=== PATIENT | male | born 1950 | race Hispanic/Latino ===

== ENCOUNTER 2023-11-21 13:49 | Emergency (ER) | payer OTHER ==
--- NOTE | 2023-11-21 14:19 | ER ---
Nurse's Notes [facility] Name: Michele Hardwick Age: 73 yrs Sex: Male : 1950 Arrival Date: 11/21/2023 Time: 13:49 Bed IW2 Private MD: Diagnosis: Acute maxillary sinusitis Presentation: 11/20 14:10 Chief complaint: Patient states: Flu like symptoms onset 10 days ago. Pt reports cough, cm10 congestion, and headache. Pt reports taking OTC meds with no relief. Coronavirus screen: Client denies travel out of the [place] in the last 14 days. Ebola Screen: Patient denies travel to an Ebola-affected area in the 21 days before illness onset. No symptoms or risks identified at this time. Initial Sepsis Screen: Does the patient meet any 2 criteria? No. Patient's initial sepsis screen is negative. Does the patient have a suspected source of infection? No. Patient's initial sepsis screen is negative. Risk Assessment: Do you want to hurt yourself or someone else? Patient reports no desire to harm self or others. Onset of symptoms was November 12, 2023. 14:10 Method Of Arrival: Ambulatory cm10 14:10 Acuity: GIBRAN 4 cm10 Triage Assessment: 14:12 General: Appears in no apparent distress. comfortable, Behavior is calm, cooperative. cm10 Neuro: No deficits noted. Level of Consciousness is awake, alert, obeys commands, Oriented to person, place, time, situation, Appropriate for age. Respiratory: No deficits noted. Airway is patent Respiratory effort is even, unlabored, Respiratory pattern is regular, symmetrical. 14:25 Pain: Complains of pain in head. cm10 Historical: - Allergies: 14:11 No Known Allergies; cm10 - Home Meds: 14:11 None [Active]; cm10 - PMHx: 14:11 None; cm10 - PSHx: 14:11 None; cm10 - Immunization history:: Adult Immunizations up to date. - Infectious Disease History:: Denies. - Social history:: Smoking status: Patient/guardian denies using tobacco. Screenin:25 [facility] ED Fall Risk Assessment (Adult) History of falling in the last 3 months, cm10 including since admission No falls in past 3 months (0 pts) Confusion or Disorientation No (0 pts) Intoxicated or Sedated No (0 pts) Impaired Gait No (0 pts) Mobility Assist Device Used No (0 pt) Altered Elimination No (0 pt) Score/Fall Risk Level 0 - 2 = Low Risk Oriented to surroundings, Maintained a safe environment, Hourly rounding (assess needs \T\ fall precautionary measures) done. Abuse screen: Denies threats or abuse. Denies injuries from another. Nutritional screening: No deficits noted. Tuberculosis screening: No symptoms or risk factors identified. Vital Signs: 14:10 BP 161 / 95; Pulse 55; Resp 19; Temp 97.7; Pulse Ox 98% on R/A; Weight 113.4 kg; Height cm10 5 ft. 11 in. ; Pain 10/10; 14:10 Body Mass Index 34.87 (113.40 kg, 180.34 cm) cm10 14:10 Pain Scale: Adult cm10 ED Course: 13:52 Patient arrived in ED. mr 13:55 Rashel Leyva MD is Attending Physician. ec2 14:11 Triage completed. cm10 14:12 Arm band placed on left wrist. Patient placed in waiting room. cm10 14:24 Patient has correct armband on for positive identification. Provided Education on: cm10 Follow-up instructions. 14:24 SARS RAPID Sent. cm10 14:24 Flu Sent. cm10 14:24 No provider procedures requiring assistance completed. COVID swab sent to lab. Flu cm10 and/or RSV swab sent to lab. Patient did not have IV access during this emergency room visit. Administered Medications: 14:23 Drug: predniSONE PO 20 mg PO once Route: PO; cm10 14:26 Follow up: Response: Medication administered at discharge. cm10 14:24 Drug: AZITHromycin PO 500 mg PO once Route: PO; cm10 14:26 Follow up: Response: Medication administered at discharge. cm10 Medication: 14:25 VIS not applicable for this client. cm10 Outcome: 14:19 Discharge ordered by . ec2 14:25 Discharged to home ambulatory, cm10 14:25 Condition: good 14:25 Discharge instructions given to patient, Instructed on discharge instructions, follow up and referral plans. medication usage, Demonstrated understanding of instructions, follow-up care, medications, Prescriptions given X 2, 14:26 Patient left the ED. cm10 Signatures: Candelaria Aguilar, Ash Reg Renae Valerio, RN RN cm10 Rashel Leyva MD MD ec2 Corrections: (The following items were deleted from the chart) 14:13 14:10 Onset of symptoms was November 21, 2023 [place] [id number]
--- NOTE | 2023-11-21 14:19 | EDPHYS ---
Physician Documentation [facility] Name: Michele Hardwick Age: 73 yrs Sex: Male : 1950 Arrival Date: 11/21/2023 Time: 13:49 Bed IW2 Private MD: ED Physician Rashel Leyva HPI: 11/20 14:21 This 73 yrs old Male presents to ER via Ambulatory with complaints of Flu ec2 Symptoms. 14:21 Patient arrives today d/t concern for URI s/s. Reports 10 plus days of URI s/s, reports ec2 that he is having congestion, fatigue, decreased p.o. intake. Patient reports no difficulty breathing. Patient reports he is taken [id number] medications with minimal alleviation symptoms. Reports significant drainage from the bilateral nares.. Historical: - Allergies: 14:11 No Known Allergies; cm10 - Home Meds: 14:11 None [Active]; cm10 - PMHx: 14:11 None; cm10 - PSHx: 14:11 None; cm10 - Immunization history:: Adult Immunizations up to date. - Infectious Disease History:: Denies. - Social history:: Smoking status: Patient/guardian denies using tobacco. ROS: 14:21 Constitutional: as per hpi ec2 Exam: 14:21 Constitutional: GEN: NAD Head: atraumatic Eyes: EOMI Ears: External ears are normal. ec2 Nose: Significant congestion from bilateral nares noted. CV: regular rate LUNGS: no respiratory distress, no wheezes, no rales, rhonchi ABD: non-distended SKIN: no evidence of rashes MSK: no evidence of trauma Vital Signs: 14:10 BP 161 / 95; Pulse 55; Resp 19; Temp 97.7; Pulse Ox 98% on R/A; Weight 113.4 kg; Height cm10 5 ft. 11 in. ; Pain 10/10; 14:10 Body Mass Index 34.87 (113.40 kg, 180.34 cm) cm10 14:10 Pain Scale: Adult cm10 MDM: 14:12 Patient medically screened. ec2 14:21 Data reviewed: vital signs. ED course: Patient arrives today for evaluation of URI ec2 signs symptoms. Examination remarkable for HEENT findings as noted above and reassuring pulmonary sounds. Suspect sinusitis. Given patient's duration of symptoms, will empirically treat with antibiotics. Patient discharged home. Return precautions given. considered other processes such as pna and viral infection . 11/20 14:16 Order name: Flu cm10 11/20 14:16 Order name: SARS RAPID cm10 Administered Medications: 14:23 Drug: predniSONE PO 20 mg PO once Route: PO; cm10 14:26 Follow up: Response: Medication administered at discharge. cm10 14:24 Drug: AZITHromycin PO 500 mg PO once Route: PO; cm10 14:26 Follow up: Response: Medication administered at discharge. cm10 Disposition Summary: 11/21/23 14:19 Discharge Ordered Notes: Location: Home ec2 Condition: Stable ec2 Diagnosis - Acute maxillary sinusitis ec2 Followup: ec2 - With: Private Physician - When: - Reason: Re-evaluation by your physician Discharge Instructions: - Discharge Summary Sheet ec2 - Sinusitis, Adult, [id number] ec2 Forms: - Medication Reconciliation Form ec2 - Antibiotic Education ec2 - Prescription Opioid Use ec2 - Patient Portal Instructions ec2 - Leadership Thank You Letter ec2 Prescriptions: - azithromycin 250 mg Oral tablet - take 1 tablet ORAL route daily; 4 tablet; Refills: 0, Product Selection ec2 Permitted - Prednisone 20 mg Oral Tablet - take 1 tablet ORAL route once daily for 5 days; 5 tablet; Refills: 0, Product ec2 Selection Permitted Signatures: Dispatcher [employer] Renae Quintana RN RN 10 Rashel Leyva MD MD ec2
[2023-11-21] MEDS ORDERED: AZITHROMYCIN 250 MG TAB ONE (14:23)
[2023-11-21] MEDS ORDERED: predniSONE 20 MG TAB ONE (14:23)
[2023-11-21 15:22] LABS: SARS-CoV-2 Antigen CONTROL BLUE LINE VIS/BG OK; SARS-CoV-2 Antigen Rapid Res Negative (Negative)
[2023-11-21 16:32] VITALS: BP 161/95; TEMP 97.7; O2SAT 98
== END 2023-11-21 14:26 | disposition home or self-care (01) ==
LOC: ER 13:49
DX: J01.00 Acute maxillary sinusitis, unspecified (principal); Z11.52 Encounter for screening for COVID-19
CPT/HCPCS: 36415; 87804 ×2; 99283; 87811; J7512

== ENCOUNTER 2024-02-29 12:07 | Emergency (ER) | payer OTHER ==
--- OUTSIDE RECORDS SUMMARY | 2024-02-29 12:14 | XMS REPORT | Continuity of Care Document ---
Author Name Unknown Address [address] [place] [address] [facility] thconnect Address 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 Role Phone Pcp, Patient Does Not Have A Primary Care Physic marj RENAN PRIETO Attending Clinician Unavailable RENAN PRIETO Attending Clinician Unavailable JEANNE RAINEY Attending Clinician Unavailable Jeanne Brunson Attending Clinician [phone] KACEY APONTE Attending Clinician Unavailable Selene DUMAS, Taryn Hart Attending Clinician Fausto CARRENO, Flaco Ambrose Attending Clinician Unavail able Elvis GUARDADO, Briseyda Gerardo Attending Clinician [phone] Akira Mills DO Attending Clinician [phone] Ben DUMAS, Johnathon Pan Attending Clinician + Roman Dunbar DO Attending Clinician [phone] Hosea Jefferson MD, Daina Attending Clinician [phone] Colleen Contreras MD Attending Clinician MINISTERIO LÓPEZ Attending Clinician UnavailMinisterio Membreno MD Attending Clinician [phone] Tabitha PHAM Attending Clinician Unavailable Tabitha Jackson Attending Clinician RENAN PRIETO Admitting Clinician Unavailable JEANNE RAINEY Admitting Clinician Unavailable MERLINE LEONARDO Admitting Clinician Unavailable Teqwimuah DO, Roman Admitting Clinician [phone] TEQWIMUAH, ROMAN Admitting Clinician Unavailable MINISTERIO LÓPEZ Admitting Clinician UnavailTabitha Escmailla Admitting Clinician Unavailable Payers Payer Name Policy Type Policy Number Effective Date Expirati on Date Source [employer] MED[employer]ARE [employer]VANTAGE [id number] 2022 00:00:00 Problems Condition Name Condition Details Condition Category Status Onset Date Resolution Date Last Treatment Date Treating Clinician Comments Source Diverticul itis Diverticul itis Disease Active 07-02 00:00: 00 Overview: Formattin g of this note might be different from the original. Added automatic ally from request for surgery [id number] [facility] Acute abdominal pain Acute abdominal pain Disease Active 06-21 00:00: 00 [facility] Anemia, unspecifie d type Anemia, unspecifie d type Disease Active 06-20 00:00: 00 Overview: Formattin g of this note might be different from the original. Added automatic ally from request for surgery [id number] [facility] Melena Melena Disease Active 06-20 00:00: 00 Overview: Formattin g of this note might be different from the original. Added automatic ally from request for surgery [id number] [facility] Small bowel obstructio n Small bowel obstructio n Disease Active 3-10 00:00: 00 [facility] Cholecysti tis Cholecysti tis Disease Active - 00:00: 00 [facility] Abdominal pain, unspecifie d abdominal location Abdominal pain, unspecifie d abdominal location Disease Active - 00:00: 00 Overview: Formattin g of this note might be different from the original. Added automatic ally from request for surgery [id number] [facility] Acute cholecysti tis Acute cholecysti tis Disease Active 08-05 00:00: 00 [facility] Choledocho lithiasis Choledocho lithiasis Disease Active 08-05 00:00: 00 [facility] Allergies, Adverse Reactions, Alerts Allergy Name Allergy Type Status Severity Reaction(s) Onset Date Inactive Date Treating Clinician Comments Source NO KNOWN ALLERGIE S Drug Class Active [facility] Social History Social Habit Start Date Stop Date Quantity Comments Source History SDOH Alcohol Std Drinks [facility] History SDOH Alcohol Binge [facility] History SDOH Social Connections Get Together [facility] History SDOH Social Connections Moravian [facility] History SDOH Social Connections Membership [facility] History SDOH Social Connections Meetings [facility] History SDOH Housing Places Lived [facility] Gender identity [facility] Sexual orientation [facility] Alcohol intake 2022-06-25 00:00:00 2022-06-25 00:00:00 Current non-drinker of alcohol (finding) [facility] History SDOH Alcohol Frequency 2022-06-24 00:00:00 2022-06-24 00:00:00 1 [facility] History SDOH Social Connections Phone 2022-06-24 00:00:00 2022-06-24 00:00:00 5 [facility] History SDOH Social Connections Living 2022-06-24 00:00:00 2022-06-24 00:00:00 3 [facility] History SDOH Financial 2022-06-24 00:00:00 2022-06-24 00:00:00 5 [facility] History SDOH Food Worry 2022-06-24 00:00:00 2022-06-24 00:00:00 1 [facility] History SDOH Food Scarcity 2022-06-24 00:00:00 2022-06-24 00:00:00 1 [facility] History SDOH Transport Med 2022-06-24 00:00:00 2022-06-24 00:00:00 2 [facility] History SDOH Transport Non-Med 2022-06-24 00:00:00 2022-06-24 00:00:00 2 [facility] History SDOH Housing Unable to Pay 2022-06-24 00:00:00 2022-06-24 00:00:00 2 [facility] History SDOH Housing Homeless Last Year 2022-06-24 00:00:00 2022-06-24 00:00:00 2 [facility] Exposure to SARS-CoV-2 (event) 2022-06-10 00:00:00 2022-06-20 22:18:00 Not sure [facility] History of Social function 2018-08-27 00:00:00 2018-08-27 00:00:00 [facility] Tobacco use and exposure 2012-08-07 00:00:00 2012-08-07 00:00:00 Smokeless tobacco non-user [facility] Sex Assigned At 1950 00:00:00 1950 00:00:00 [facility] Smoking Status Start Date Stop Date Source Never smoked tobacco [facility] Medications Ordered Medication Name Filled Medication Name Start Date Stop Date Current Medication? Ordering Clinician Indication Dosage Frequency Signature (SIG) Comments Components Source methocarbam oL 500 mg tablet 08-21 00:00: 00 Yes [id number] 500mg Take 1 tablet by mouth 4 (four) times daily as needed for Pain (scale 4-6) or Pain (scale 7-10). [facility] Diclofenac Sodium (VOLTAREN) 1 % gel 08-21 00:00: 00 Yes [id number] Apply to area(s) 4 (four) times daily as needed for Pain (scale 1-3), Pain (scale 4-6) or Pain (scale 7-10). [facility] ibuprofen 800 mg tablet 08-21 00:00: 00 Yes [id number] 800mg Take 1 tablet by mouth every 6 (six) hours as needed for Pain (scale 4-6) or Pain (scale 1-3). [facility] peg-electro lyte soln 236-22.74-6 .74 -5.86 gram solution 07-02 00:00: 00 Yes [id number] Take as directed before colonoscop y [facility] pantoprazol e 40 mg EC tablet 06-28 00:00: 00 08-28 04:59 :00 No [id number] 40mg Take 1 tablet by mouth in the morning and 1 tablet in the evening. Do all this for 60 days. [facility] pantoprazol e (PROTONIX) EC tablet 40 mg 06-26 01:00: 00 Yes 40mg 40 mg, Oral, BID, First dose on Fri06/25/22 at 1999, Until Discontinu ed, Routine [facility] amoxicillin -clavulanat e (AUGMENTIN) 875-125 mg per tablet 1 tablet 06-26 01:00: 00 06-29 00:59 :00 No 1{tbl} 1 tablet, Oral, Q12H, 6 doses, First dose on Fri06/25/22 at 1999, Last dose on Fri06/28/22 at 0800, Routine
Reason for Anti-Infec tive: Empiric Therapy for Suspected Infection< br>Empiric Therapy Site: Abdominal< br>Duratio n of therapy: 72 hours [facility] simethicone (GAS RELIEF (SIMETHICON E)) 40 mg/0.6 mL drops 06-24 21:09: 00 06-24 22:04 :03 No PRN, Starting on Fri06/24/22 at 1609, Until Fri06/24/22 at 1704, Routine, Intra-op [facility] iopamidol (ISOVUE 370-500 mL) injection 80 mL 06-23 19:15: 00 06-23 19:15 :00 No [id number] 80mL 80 mL, Intravenou s, ONCE, 1 dose, On Fri06/23/22 at 1415, Routine [facility] lactated ringers IV infusion 1,000 mL 06-23 14:30: 00 Yes 1000mL at 50 mL/hr, 1,000 mL, IV Infusion, CONTINUOUS , Starting on Fri06/23/22 at 0930, Until Discontinu ed, Routine [facility] NaCl 0.9% (NS) IV infusion 1,000 mL 06-23 01:00: 00 06-23 00:22 :33 No 1000mL at 999 mL/hr, IV Infusion, ONCE, 1 dose, On 06/22/22 at 2000, Routine [facility] piperacilli n-tazobacta m (ZOSYN) 3.375 g in NaCl 0.9% (NS) 100 mL MINI-BAG 06-22 20:15: 00 06-25 20:14 :00 No 3.375g 3.375 g, IV Piggyback, Q8H ABX, 9 doses, First dose on Fri06/22/22 at 1515, Last dose on Fri06/25/22 at 0715, Administer over 4 Hours, 100 mL
Reas on for Anti-Infec tive: Empiric Therapy for Suspected Infection< br>Empiric Therapy Site: Abdominal< br>Duratio n of therapy: 72 hours [facility] methocarbam oL (ROBAXIN) tablet 500 mg 06-22 19:00: 00 Yes 500mg 500 mg, Oral, TID, First dose on Fri06/22/22 at 1400, Until Discontinu ed, Routine [facility] pantoprazol e (PROTONIX) 80 mg in NaCl 0.9%(NS) 500 mL IV infusion (CNR) 06-22 18:45: 00 Yes 8mg/h 8 mg/hr (50 mL/hr), IV Infusion, CONTINUOUS , Starting on 06/22/22 at 1345 [facility] benzonatate (TESSALON PERLES) capsule 100 mg 06-22 17:35: 59 Yes 100mg 100 mg, Oral, TIDPRN, Starting on 06/22/22 at 1235, Until Discontinu ed, Routine, Cough [facility] piperacilli n-tazobacta m (ZOSYN) 3.375 g in NaCl 0.9% (NS) 100 mL MINI-BAG 06-22 12:30: 00 06-22 13:32 :00 No 3.375g 3.375 g, IV Piggyback, ONCE, 1 dose, On Fri06/22/22 at 0730, Administer over 30 Minutes, 100 mL
Reas on for Anti-Infec tive: Empiric Therapy for Suspected Infection< br>Empiric Therapy Site: Abdominal< br>Duratio n of therapy: 72 hours [facility] simethicone (GAS RELIEF (SIMETHICON E)) 40 mg/0.6 mL drops 06-21 17:59: 00 06-21 18:15 :58 No PRN, Starting on Fri06/21/22 at 1259, Until Fri06/21/22 at 1315, Routine, Intra-op [facility] cefTRIAXone (ROCEPHIN) 1,000 mg in NaCl 0.9% (NS) 100 mL MINI-BAG 06-21 15:30: 00 06-22 11:45 :20 No 1000mg 1,000 mg, IV Piggyback, Q24H ABX, 3 doses, First dose on Fri06/21/22 at 1030, Last dose on Fri06/23/22 at 1030, Administer over 30 Minutes, 100 mL
Reas on for Anti-Infec tive: Empiric Therapy for Suspected Infection< br>Empiric Therapy Site: Abdominal< br>Duratio n of therapy: 72 hours [facility] sulfur hexafluorid e microsphr (LUMASON) injection 5 mL 06-21 15:30: 00 06-21 15:30 :00 No [id number] 5mL 5 mL, Intravenou s, ONCE, 1 dose, On Fri06/21/22 at 1030, Routine
swat team member approving Restricted medication : OPHELIA LIMA [facility] HYDROcodone -acetaminop hen (NORCO 5) 5-325 mg tablet 1 tablet 06-21 14:39: 32 Yes 1{tbl} 1 tablet, Oral, Q6HPRN, Starting on Fri06/21/22 at 0939, Until Discontinu ed, Routine, Pain (scale 4-6) [facility] pantoprazol e (PROTONIX) injection 40 mg 06-21 13:00: 00 06-22 17:34 :22 No 40mg 40 mg, Slow IV Push, Q12H, First dose (after last reorder) on Fri06/21/22 at 0800, Until Discontinu ed [facility] metroNIDAZO LE in NaCl (iso-os) (FLAGYL I.V.) RTU IV infusion 500 mg 06-21 12:30: 00 06-22 11:45 :20 No 500mg 500 mg, IV Piggyback, Q12H ABX, First dose on Fri06/21/22 at 0730, Until Discontinu ed, Administer over 60 Minutes, 100 mL
Reas on for Anti-Infec tive: Documented Infection< br>Documen jennifer Infection Site: Abdominal< br>Duratio n of Therapy: 7 days [facility] NaCl 0.9% (NS) IV infusion 1,000 mL 06-21 11:30: 00 06-22 11:45 :36 No 1000mL at 125 mL/hr, IV Infusion, CONTINUOUS , Starting on Fri06/21/22 at 0630, Until 06/22/22 at 0645, Routine [facility] acetaminoph en (TYLENOL) tablet 650 mg 06-21 11:22: 02 Yes 650mg 650 mg, Oral, Q6HPRN, Starting on Fri06/21/22 at 0622, Until Discontinu ed, Routine, Pain (scale 1-3) [facility] amoxicillin -clavulanat e (AUGMENTIN) 875-125 mg per tablet 1 tablet 06-21 07:45: 00 06-21 07:03 :00 No 1{tbl} 1 tablet, Oral, ONCE, 1 dose, On Fri06/21/22 at 0245, Routine
Reason for Anti-Infec tive: Documented Infection< br>Documen jennifer Infection Site: Abdominal< br>Duratio n of Therapy: Other (see Comments) [facility] iopamidol (ISOVUE 370-500 mL) injection 100 mL 06-21 07:00: 00 06-21 07:00 :00 No [id number] 100mL 100 mL, Intravenou s, ONCE, 1 dose, On Fri06/21/22 at 0200, Routine [facility] ondansetron (ZOFRAN (PF)) injection 4 mg 06-21 04:15: 06-21 04:28 :00 No 4mg 4 mg, Slow IV Push, ONCE, 1 dose, On Magdalene 06/20/22 at 2315, KYE [facility] FENTanyl PF (SUBLIMAZE (PF)) injection 75 mcg 06-21 04:15: 00 06-21 04:30 :00 No 75ug 75 mcg, Slow IV Push, ONCE, 1 dose, On Magdalene 06/20/22 at 2315, KYE [facility] pantoprazol e (PROTONIX) injection 40 mg 06-21 04:15: 06-21 04:34 :00 No 40mg 40 mg, Slow IV Push, ONCE, 1 dose, On Magdalene 06/20/22 at 2315 [facility] aspirin tablet 325 mg 06-01 14:00: 00 Yes 325mg 325 mg, Oral, DAILY, First dose on 06/01/22 at 0900, Until Discontinu ed, Routine [facility] furosemide (LASIX) injection 40 mg 05-31 18:15: 00 05-31 18:16 :00 No 40mg 40 mg, IV Push, ONCE, 1 dose, On Fri05/31/22 at 1315, KYE [facility] furosemide 20 mg tablet 05-31 00:00: 00 Yes [id number] 20mg Take 1 tablet by mouth every morning. [facility] aspirin 81 mg chewable tablet 05-31 00:00: 00 06-28 00:00 :00 No [id number] 81mg Take 1 tablet by mouth in the morning for 30 days. [facility] azithromyci n (ZITHROMAX) tablet 500 mg 06-04 04:45: 00 06-04 03:46 :00 No 500mg 500 mg, Oral, ONCE, 1 dose, On Fri06/03/21 at 2345, KYE
Re ason for Anti-Infec tive: Documented Infection< br>Documen jennifer Infection Site: Respirator y
Durat ion of Therapy: Other (see Comments) [facility] ibuprofen (IBU) tablet 800 mg 06-04 03:00: 00 06-04 01:50 :00 No 800mg 800 mg, Oral, ONCE, 1 dose, On Fri06/03/21 at 2200, KYE [facility] NaCl 0.9% (NS) IV infusion 1,000 mL 06-04 02:55: 00 06-04 03:50 :00 No 1000mL at 999 mL/hr, Intravenou s, ONCE, 1 dose, On Fri06/03/21 at 2200, KYE [facility] azithromyci n (ZITHROMAX Z-GALLO) 250 mg tablet 06-03 00:00: 00 Yes [id number] 250mg Take 1 tablet by mouth SEE-INSTRU CTIONS. Take 500 mg day 1, then 250 mg days 2 to 5. [facility] benzonatate 200 mg capsule 06-03 00:00: 00 06-28 00:00 :00 No [id number] 200mg Take 1 capsule by mouth 3 (three) times daily as needed for Cough for up to 20 doses. [facility] mineral oil oral liquid 04-29 00:00: 00 Yes [id number] 30mL Take 30 mL by mouth daily. [facility] Polyethylen e Glycol 3350 17 gram powder 04-29 00:00: 00 Yes [id number] 17g Take 1 Packet by mouth daily. [facility] Vital Signs Vital Name Observation Time Observation Value Comments S ource Heart rate 2022-08-21 14:20:00 83 /min [facility] Body temperature 2022-08-21 14:20:00 36.67 Tammie [facility] Respiratory rate 2022-08-21 14:20:00 16 /min [facility] Body height 2022-08-21 14:20:00 180.3 cm [facility] Body weight 2022-08-21 14:20:00 112.492 kg [facility] BMI 2022-08-21 14:20:00 34.59 kg/m2 [facility] Oxygen saturation in Arterial blood by Pulse oximetry 2022-08-21 14:20:00 98 /min [facility] Systolic blood pressure 2022-06-28 16:19:00 127 mm[Hg] [facility] Diastolic blood pressure 2022-06-28 16:19:00 67 mm[Hg] [facility] Heart rate 2022-06-28 16:19:00 87 /min [facility] Body temperature 2022-06-28 16:19:00 36.61 Tammie [facility] Respiratory rate 2022-06-28 16:19:00 18 /min [facility] Oxygen saturation in Arterial blood by Pulse oximetry 2022-06-28 16:19:00 98 /min [facility] Body height 2022-06-21 09:38:00 180.3 cm [facility] Body weight 2022-06-21 09:38:00 72.576 kg [facility] BMI 2022-06-21 09:38:00 22.32 kg/m2 [facility] Systolic blood pressure 2022-06-24 19:30:00 156 mm[Hg] [facility] Diastolic blood pressure 2022-06-24 19:30:00 77 mm[Hg] [facility] Heart rate 2022-06-24 19:30:00 77 /min [facility] Body temperature 2022-06-24 19:30:00 36.06 Tammie [facility] Respiratory rate 2022-06-24 19:30:00 18 /min [facility] Oxygen saturation in Arterial blood by Pulse oximetry 2022-06-24 19:30:00 98 /min [facility] Body height 2022-06-21 09:38:00 180.3 cm [facility] Body weight 2022-06-21 09:38:00 72.576 kg [facility] BMI 2022-06-21 09:38:00 22.32 kg/m2 [facility] Systolic blood pressure 2022-06-21 17:25:00 116 mm[Hg] [facility] Diastolic blood pressure 2022-06-21 17:25:00 68 mm[Hg] [facility] Heart rate 2022-06-21 17:25:00 66 /min Unive [facility] Body temperature 2022-06-21 17:25:00 36.33 Tammie [facility] Respiratory rate 2022-06-21 17:25:00 18 /min [facility] Oxygen saturation in Arterial blood by Pulse oximetry 2022-06-21 17:25:00 94 /min on room air [facility] Body height 2022-06-21 09:38:00 180.3 cm [facility] Body weight 2022-06-21 09:38:00 72.576 kg [facility] BMI 2022-06-21 09:38:00 22.32 kg/m2 [facility] Systolic blood pressure 2022-05-31 20:12:00 141 mm[Hg] [facility] Diastolic blood pressure 2022-05-31 20:12:00 84 mm[Hg] [facility] Heart rate 2022-05-31 20:12:00 74 /min Unive [facility] Body temperature 2022-05-31 20:12:00 36.72 Tammie [facility] Respiratory rate 2022-05-31 20:12:00 16 /min [facility] Oxygen saturation in Arterial blood by Pulse oximetry 2022-05-31 20:12:00 93 /min [facility] Body weight 2022-05-31 17:21:00 117.028 kg [facility] BMI 2022-05-31 17:21:00 34.99 kg/m2 [facility] Heart rate 2021-06-04 03:10:00 88 /min [facility] Body temperature 2021-06-04 03:10:00 37.5 Tammie [facility] Oxygen saturation in Arterial blood by Pulse oximetry 2021-06-04 03:10:00 92 /min [facility] Systolic blood pressure 2021-06-04 03:00:00 116 mm[Hg] [facility] Diastolic blood pressure 2021-06-04 03:00:00 72 mm[Hg] [facility] Respiratory rate 2021-06-04 03:00:00 18 /min [facility] Body height 2021-06-04 00:11:00 182.9 cm [facility] Body weight 2021-06-04 00:11:00 108.863 kg [facility] BMI 2021-06-04 00:11:00 32.55 kg/m2 [facility] Procedures Procedure Date / Time Performed Performing Clinician Source XR TIBIA FIBULA 2 VW LEFT 2022-08-21 15:18:40 Jeanne Rainey [facility] DUPLEX VENOUS LEG LEFT - BY VASCULAR LAB 2022-08-21 15:03:39 Jeanne Rainey [facility] CONSENT/REFUSAL FOR DIAGNOSI S AND TREATMENT 2022-08-21 14:14:33 Doctor Unassigned, [place] [facility] CBC WITH DIFF 2022-06-28 09:53:00 [facility] CBC WITH DIFF 2022-06-27 10:19:00 Hosea Jefferson [place] TRANSFUSE PACKED RBC 2022-06-26 16:08:00 Hosea Jefferson [place] PREPARE PACKED RBC 2022-06-26 15:56:55 [facility] CBC WITH DIFF 2022-06-26 09:28:00 Hosea Jefferson [place] PREPARE PACKED RBC 2022-06-26 04:48:40 Sallie Jaramillo [facility] HB ABO GROUPING 2022-06-26 04:11:00 Sallie Jaramillo [facility] CBC WITH DIFF 2022-06-26 01:40:00 Abu Ather, [place] BASIC METABOLIC PANEL (NA, K , CL, CO2, GLUCOSE, BUN, CREATININE, CA) 2022-06-25 12:48:00 Abu Atherah, [place] CBC WITH DIFF 2022-06-25 12:48:00 Abu Ather, [place] BASIC METABOLIC PANEL (NA, K , CL, CO2, GLUCOSE, BUN, CREATININE, CA) 2022-06-25 12:48:00 Abu Atherah, [place] CBC WITH DIFF 2022-06-25 12:48:00 Abu [facility], [place] PREPARE PACKED RBC 2022-06-25 05:15:05 u [facility], [place] PREPARE PACKED RBC 2022-06-25 05:15:05 [facility] [place] ESOPHAGOGASTRODUODENOSCOPY 2022-06-24 20:47:00 [facility] ESOPHAGOGASTRODUODENOSCOPY 2022-06-24 20:47:00 Renan Prieto [facility] EGD (ENDO) 2022-06-24 20:45:53 Self Referred, [facility] CBC WITH DIFF 2022-06-24 16:47:00 Abu Ather, [place] CBC WITH DIFF 2022-06-24 16:47:00 Abu Atherah, [place] CBC WITH DIFF 2022-06-24 16:47:00 Abu Atherah, [place] CBC WITH DIFF 2022-06-24 10:56:00 Abu Ather, [place] EXTRA TUBE LT. GREEN 2022-06-24 10:56:00 Abu Atherah, [place] CBC WITH DIFF 2022-06-24 10:56:00 Abu Atherah, [place] EXTRA TUBE LT. GREEN 2022-06-24 10:56:00 Abu Atherah, [place] CBC WITH DIFF 2022-06-24 10:56:00 Abu Atherah, [place] EXTRA TUBE LT. GREEN 2022-06-24 10:56:00 Abu Atherah, [place] TRANSFUSE PACKED RBC 2022-06-24 03:46:00 Abu Atherah, [place] TRANSFUSE PACKED RBC 2022-06-24 03:46:00 Abu Atherah, [place] TRANSFUSE PACKED RBC 2022-06-24 03:46:00 Abu Atherah, [place] PREPARE PACKED RBC 2022-06-24 03:30:42 Abu Atherah, [place] CBC WITH DIFF 2022-06-24 02:28:00 Abu Atherah, [place] CBC WITH DIFF 2022-06-24 02:28:00 Abu Atherah, [place] CBC WITH DIFF 2022-06-24 02:28:00 Abu Atherah, [place] TRANSFUSE PACKED RBC 2022-06-23 22:53:00 Abu Atherah, [place] TRANSFUSE PACKED RBC 2022-06-23 22:53:00 Abu Atherah, [place] TRANSFUSE PACKED RBC 2022-06-23 22:53:00 Abu Atherah, [place] PREPARE PACKED RBC 2022-06-23 22:42:29 Abu Atherah, [place] PREPARE PACKED RBC 2022-06-23 22:42:29 Abu Atherah, [place] PREPARE PACKED RBC 2022-06-23 22:42:29 Abu Atherah, [place] CBC WITH DIFF 2022-06-23 20:07:00 Abu Atherah, [place] CBC WITH DIFF 2022-06-23 20:07:00 Abu Atherah, [place] CBC WITH DIFF 2022-06-23 20:07:00 Abu Atherah, [place] CT ANGIOGRAM ABDOMEN/PELVIS 2022-06-23 18:21:49 Amor Ding [facility] CT ANGIOGRAM ABDOMEN/PELVIS 2022-06-23 [facility]:21[facility]PELVIS 2022-06-23 18:21[facility]FFICILE [facility]XIN 2022-06-23 17:31:00 Abu Atherah, [place] CLOSTRIDIUM DIFFICILE TOXIN 2022-06-23 17:31:00 Abu Atherah, [place] CLOSTRIDIUM DIFFICILE TOXIN 2022-06-23 17:31:00 Abu Atherah, [place] CBC WITH DIFF 2022-06-23 10:15:00 Abu Atherah, [place] CBC WITH DIFF 2022-06-23 10:15:00 Abu Atherah, [place] CBC WITH DIFF 2022-06-23 10:15:00 Abu Ather, [place] TRANSFUSE PACKED RBC 2022-06-23 04:25:00 Abu Mary, [place] TRANSFUSE PACKED RBC 2022-06-22 20:48:00 Abu Ather, [place] TRANSFUSE PACKED RBC 2022-06-22 20:48:00 Abu Ather, [place] TRANSFUSE PACKED RBC 2022-06-22 20:48:00 Abu Mary, [place] PREPARE PACKED RBC 2022-06-22 20:34:55 urapita [facility] PREPARE PACKED RBC 2022-06-22 20:34:55 urapita [facility] PREPARE PACKED RBC 2022-06-22 20:34:55 urapita [facility] CBC WITH DIFF 2022-06-22 19:27:00 Abu Ronny [place] CBC WITH DIFF 2022-06-22 19:27:00 Abu Ather [place] CBC WITH DIFF 2022-06-22 19:27:00 Abu Mary [place] FERRITIN SERUM 2022-06-22 08:09:00 Abu Mary [place] BASIC METABOLIC PANEL (NA, K , CL, CO2, GLUCOSE, BUN, CREATININE, CA) 2022-06-22 08:09:00 Abu Ronny, [place] CBC WITHOUT DIFF 2022-06-22 08:09:00 Abu Ronny, [place] FERRITIN SERUM 2022-06-22 08:09:00 [facility], [place] BASIC METABOLIC PANEL (NA, K , CL, CO2, GLUCOSE, BUN, CREATININE, CA) 2022-06-22 08:09:00 Abu Ronny, [place] CBC WITHOUT DIFF 2022-06-22 08:09:00 Abu Ather, [place] FERRITIN SERUM 2022-06-22 08:09:00 [facility] [place] BASIC METABOLIC PANEL (NA, K , CL, CO2, GLUCOSE, BUN, CREATININE, CA) 2022-06-22 08:09:00 Abu Mary, [place] CBC WITHOUT DIFF 2022-06-22 08:09:00 [facility] [place] TRANSFUSE PACKED RBC 2022-06-22 02:26:00 Abu Ather, [place] TRANSFUSE PACKED RBC 2022-06-22 02:26:00 Abu Ather, [place] TRANSFUSE PACKED RBC 2022-06-22 02:26:00 Abu Ather, [place] HEMOGLOBIN 2022-06-21 23:21:00 Abu Atherah, [place] HEMOGLOBIN 2022-06-21 23:21:00 Abu Atherah, [place] HEMOGLOBIN 2022-06-21 23:21:00 Abu Ather, [place] TRANSTHORACIC ECHO (TTE) COM PLETE W/ CONTRAST 2022-06-21 18:14:00 [facility] TRANSTHORACIC ECHO (TTE) COM PLETE W/ CONTRAST 2022-06-21 18:14[facility] (TTE) COM PLETE W/ CONTRAST 2022-06-21 18:14:00 [facility] 2022-06-21 18:01:00 [facility] EGD (ENDO) 2022-06-21 17:42:33 Self Referred, Facility [facility] EGD (ENDO) 2022-06-21 17:42:33 Self Referred, Facility [facility] EGD (ENDO) 2022-06-21 17:42:33 Self Referred, Facility [facility] ESOPHAGOGASTRODUODENOSCOPY 2022-06-21 17:42:00 [place] [facility] ESOPHAGOGASTRODUODENOSCOPY 2022-06-21 17:42:00 [facility] TRANSFUSE PACKED RBC 2022-06-21 16:45:00 [facility] TRANSFUSE PACKED RBC 2022-06-21 16:45:00 [facility] TRANSFUSE PACKED RBC 2022-06-21 16:45:00 [facility] PREPARE PACKED RBC 2022-06-21 16:31:09 Hosea Hernandez [place] PREPARE PACKED RBC 2022-06-21 16:31:09 Hosea Hernandez [place] PREPARE PACKED RBC 2022-06-21 16:31:09 Hosea Hernandez [place] BASIC METABOLIC PANEL (NA, K , CL, CO2, GLUCOSE, BUN, CREATININE, CA) 2022-06-21 15:28:00 Hosea Jefferson [place] HB ABO GROUPING 2022-06-21 15:28:00 Hosea Hernandez [place] BASIC METABOLIC PANEL (NA, K , CL, CO2, GLUCOSE, BUN, CREATININE, CA) 2022-06-21 15:28:00 Hosea Jefferson [place] HB ABO GROUPING 2022-06-21 15:28:00 Hosea [facility] [place] BASIC METABOLIC PANEL (NA, K , CL, CO2, GLUCOSE, BUN, CREATININE, CA) 2022-06-21 15:28:00 u Ronny [place] HB ABO GROUPING 2022-06-21 15:28:00 Abu Atherpatience [place] HEMOGLOBIN 2022-06-21 14:26:00 [facility] HEMOGLOBIN 2022-06-21 14:26:00 [facility] HEMOGLOBIN 2022-06-21 14:26:00 [facility] CT ABDOMEN PELVIS W CONTRAST 2022-06-21 06:06:[address] [facility] CT ABDOMEN PELVIS W CONTRAST 2022-06-21 06:06:[address] [facility] CT ABDOMEN PELVIS W CONTRAST 2022-06-21 06:06:[address] [facility] HB ECG ROUTINE & RHYTHM STRIP 2022-06-21 03:58:[address] [facility] HB ECG ROUTINE & RHYTHM STRIP 2022-06-21 03:58:[address] [facility] HB ECG ROUTINE & RHYTHM STRIP 2022-06-21 03:58:[address] [facility] LIPASE 2022-06-21 03:55:[address] [facility] COMP. METABOLIC PANEL ([id number]) 2022-06-21 03:55:[address] [facility] IRON PANEL 2022-06-21 03:55:00 Abu Ronny [place] CBC WITH DIFF 2022-06-21 03:55:[address] [facility] PROTHROMBIN TIME / INR 2022-06-21 03:55:[address] [facility] ACTIVATED PARTIAL THRMPLAS PK 5 03:55:[address] [facility] HB ABO GROUPING 2022-06-21 03:55:[address] [facility] LIPASE 2022-06-21 03:55:[address] [facility] COMP. METABOLIC PANEL ([id number]) 2022-06-21 03:55:[address] [facility] IRON PANEL 2022-06-21 03:55:00 Abu Atherah [place] CBC WITH DIFF 2022-06-21 03:55:[address] [facility] PROTHROMBIN TIME / INR 2022-06-21 03:55:[address] [facility] ACTIVATED PARTIAL THRMPLAS PK 0 5 03:55:[address] [facility] HB ABO GROUPING 2022-06-21 03:55:[address] [facility] LIPASE 2022-06-21 03:55:[address] [facility] COMP. METABOLIC PANEL ([id number]) 2022-06-21 03:55:[address] [facility] IRON PANEL 2022-06-21 03:55:00 Hosea Jefferson [place] CBC WITH DIFF 2022-06-21 03:55:[address] [facility] PROTHROMBIN TIME / INR 2022-06-21 03:55:[address] [facility] ACTIVATED PARTIAL THRMPLAS PK 5 03:55:[address] [facility] HB ABO GROUPING 2022-06-21 03:55:[address] [facility] NOTICE OF PRIVACY PRACTICES 2022-06-21 03:10:37 Doctor Unassigned, [place] [facility] NOTICE OF PRIVACY PRACTICES 2022-06-21 03:10:37 Doctor Unassigned, [place] [facility] NOTICE OF PRIVACY PRACTICES 2022-06-21 03:10:37 Doctor Unassigned, [place] [facility] CONSENT/REFUSAL FOR DIAGNOSI S AND TREATMENT 2022-06-21 03:10:12 Doctor Unassigned, [place] [facility] CONSENT/REFUSAL FOR DIAGNOSI S AND TREATMENT 2022-06-21 03:10:12 Doctor Unassigned, [place] [facility] CONSENT/REFUSAL FOR DIAGNOSI S AND TREATMENT 2022-06-21 03:10:12 Doctor Unassigned, [place] [facility] HOSPITAL ADMISSION 2022-06-20 05:01:00 Doctor Unassigned, [place] [facility] TROPONIN I 2022-05-31 18:09:00 Ministerio López [facility] COMP. METABOLIC PANEL ([id number]) 2022-05-31 18:09:00 Ministerio López [facility] CBC WITH DIFF 2022-05-31 18:09:00 Ministerio López [facility] GALV ONLY - INFLUENZA A B RSV PCR 05-31 18:09:00 Ministerio López [facility] N-TERMINAL PRO-BNP 2022-05-31 18:09:00 Ministerio López [facility] EXTRA TUBE LT. BLUE 2022-05-31 18:09:00 Ministerio López [facility] COVID-19 (ID NOW RAPID TESTING) 18:09:00 Ministerio López [facility] LAB ONLY COVID INTERPRETATION 2022-05-31 18:09:00 Ministerio López [facility] CONSENT/REFUSAL FOR DIAGNOSI S AND TREATMENT 2022-05-31 17:10:21 Doctor Unassigned, [place] [facility] XR CHEST 2 VW 2021-06-04 01:43:30 Tabitha Pham [facility] RAPID INFLUENZA A/B 2021-06-04 01:04:00 Tabitha Pham [facility] COVID-19 (ID NOW RAPID TESTING) 01:03:00 Tabitha Pham [facility] LIPASE 2021-06-04 00:51:00 Tabitha Pham [facility] MAGNESIUM 2021-06-04 00:51:00 Tabitha Pham [facility] TROPONIN I 2021-06-04 00:51:00 Tabitha Pham [facility] COMP. METABOLIC PANEL (05001) 2021-06-04 00:51:00 Tabitha Pham [facility] CBC WITH DIFF 2021-06-04 00:51:00 Tabitha Pham [facility] URINALYSIS 2021-06-04 00:51:00 Tabitha Pham [facility] NOTICE OF PRIVACY PRACTICES 2021-06-04 00:00:26 Doctor Unassigned, [place] [facility] CONSENT/REFUSAL FOR DIAGNOSI S AND TREATMENT 2021-06-03 23:59:56 Doctor Unassigned, [place] [facility] Encounters Start Date/Time End Date/Time Encounter Type Admission Type Attending [facility] Facility Care Department Encounter ID Source 2022-08-06 14:30:03 Outpatient RENAN MISHRA KUMAR [facility] [id number] [facility] 2022-08-21 09:21:00 2022-08-21 12:42:00 Emergency X JEANNE RAINEY [facility] ERT [id number] [facility] 2022-08-21 09:21:00 2022-08-21 12:42:00 Emergency Jeanne Rainey [facility] 1..840.114 350.1.13.10 4.2.7.2.686 [id number] [facility] 2022-08-19 13:41:24 2022-08-19 13:41:24 Outpatient [facility] [id number] Erich Andino 2022-08-10 08:46:57 2022-08-10 08:46:57 Outpatient [facility] [id number] Erich Andino 2022-07-29 08:01:07 2022-07-29 23:59:00 Outpatient Ines AMANDA APONTEFRANCISCALUZ [facility] [id number] [facility] 2022-07-27 08:55:40 2022-07-27 08:55:40 Outpatient [facility] [id number] Erich F Sina 2022-07-25 15:07:30 2022-07-25 15:07:30 Outpatient [facility] [id number] Erich Silvina Sina 2022-07-16 15:00:18 2022-07-16 15:00:18 Outpatient [facility] [id number] Erich F Sina 2022-07-02 00:00:00 2022-07-02 00:00:00 Case Management Taryn Morton [facility] .2.840.114 350.1.13.10 4.2.7.2.686 [id number] [facility] 2022-07-02 00:00:00 2022-07-02 00:00:00 Case Management Selene Taryn Wigginsance [facility] 1.2.840.114 350.1.13.10 4.2.7.2.686 [id number] [facility] 2022-07-01 00:00:00 2022-07-01 00:00:00 Transition of Care Fausto Flaco KINGChe ROBERTA NORMAN 1.2.840.114 350.1.13.10 4.2.7.2.686 [id number] [facility] 2022-06-20 22:22:00 2022-06-28 13:07:00 Hospital Encounter Briseyda Leal, Akira Contreras, Johnathon Dunbar, Roman [facility] ([facility]) 1.2.840.114 350.1.13.10 4.2.7.2.686 [id number] [facility] 2022-06-20 22:22:00 2022-06-28 13:07:00 Inpatient [facility] [id number] [facility] 2022-06-24 13:53:00 2022-06-24 14:46:[address] [facility] ([facility]) 1.2.840.114 350.1.13.10 4.2.7.2.686 [id number] [facility] 2022-06-21 12:20:00 2022-06-21 13:04:[address] [facility] ([facility]) 1.2.840.114 350.1.13.10 4.2.7.2.686 [id number] [facility] 2022-05-31 12:22:00 2022-05-31 16:18:00 Emergency X MINISTERIO LÓPEZ [facility] ERT [id number] [facility] 2022-05-31 12:22:00 2022-05-31 16:18:00 Emergency Ministerio López [facility] 1.2.840.114 350.1.13.10 4.2.7.2.686 [id number] [facility] 2022-05-30 09:26:34 2022-05-30 09:26:34 Outpatient [facility] [id number] Erich Andino 2021-12-04 16:36:54 2021-12-04 16:36:54 Outpatient [facility] [id number] Erich Andino 2021-06-03 19:18:00 2021-06-03 22:54:00 Emergency X VERO, Tabitha [facility] ERT [id number] [facility] 2021-06-03 19:18:00 2021-06-03 22:54:00 Emergency Tabitha Pham Marsha [facility] 1.2.840.114 350.1.13.10 4.2.7.2.686 [id number] [facility] Results Test Description Test Time Test Comments Results Result Co mments Source COMPREHENSIVE METABOLIC [id number] 02:42:14* Test Item Value Reference Range Interpretation Comme nts GLUCOSE (test code = 2217) 125 MG/DL 70-99 H BUN (test code = 2208) 20 MG/DL 8-23 CREATININE (test code = 2214) 1.02 MG/DL 0.80-1.40 eGFR (2020 CKD-EPI) (test code = 10918) 79 ML/MIN/1.73 >60 CALC BUN/CREAT (test code = 2235) 20 RATIO 6-28 SODIUM (test code = 2231) 141 MEQ/L 133-146 POTASSIUM (test code = 2228) 4.4 MEQ/L 3.5-5.4 CHLORIDE (test code = 2215) 106 MEQ/L 95-107 CARBON DIOXIDE (test code = 2205) 26 MEQ/L 19-31 CALCIUM (test code = 2208) 9.1 MG/DL 8.5-10.5 PROTEIN, TOTAL (test code = 2228) 6.6 G/DL 6.1-8.3 ALBUMIN (test code = 1) 3.8 G/DL 3.5-5.2 CALC GLOBULIN (test code = 0) 2.8 G/DL 1.9-3.7 CALC A/G RATIO (test code = 2233) 1.4 RATIO 1.0-2.6 BILIRUBIN, TOTAL (test code = 2206) <0.2 MG/DL See_Comment [Automated me ssage] The system which generated this result transmitted reference range: <=1.2. The reference range was not used to interpret this result as normal/abnormal. ALKALINE PHOSPHATASE (test code = 2203) 120 U/L 40-125 AST (test code = 8) 12 U/L 9-50 ALT (test code = 2218) 17 U/L 5-50 [id number] 13:12:09* Test Item Value Reference Range Interpretation Comme nts D-DIMER (test code = 1405) 3.74 UG/ML FEU See_Comment H NOTE: Provided r eference range is established for evaluation of Deep Venous Thrombosis/Pulmonary Embolus (DVT/PE). Results below cutoff value of <=0.49 UG/ML FEU have a high negative predictive value forDVT/PE. No reference range is established for disseminatedintra-vascul ar coagulation (DIC). UNLESS OTHERWISE INDICATED, ALL TESTING PERFORMED AT [facility] [address] [place] [address] INSIDE ACCOUNT REPRESENTATIVE: NATHANIEL WHITE M.D. CLIA NUMBER [id number] [place]. [id number] [Automated message] The system which generated this result transmitted reference range: <=0.49. The reference range was not used to interpret this result as normal/abnormal. TSH RFLX FT4 AND [id number] 20:33:03* Test Item Value Reference Range Interpretation Comme nts TSH RFLX FT4 AND FT3 (test c ode = 17342) 1.750 UIU/ML 0.400-4.100 [id number] 10:52:27* Test Item Value Reference Range Interpretation Comme nts D-DIMER (test code = 1405) 5.70 UG/ML FEU See_Comment H NOTE: Provided r eference range is established for evaluation of Deep Venous Thrombosis/Pulmonary Embolus (DVT/PE). Results below cutoff value of <=0.49 UG/ML FEU have a high negative predictive value forDVT/PE. No reference range is established for disseminatedintra-vascul ar coagulation (DIC). UNLESS OTHERWISE INDICATED, ALL TESTING PERFORMED AT [facility] [address] [place] [address] INSIDE ACCOUNT REPRESENTATIVE: NATHANIEL WHITE M.D. CLIA NUMBER [id number] [facility] [place] [place]. [id number] [Automated message] The system which generated this result transmitted reference range: <=0.49. The reference range was not used to interpret this result as normal/abnormal. LIPID [id number] 06:44:40* Test Item Value Reference Range Interpretation Comme nts CHOLESTEROL (test code = 2210) 182 MG/DL <200 TRIGLYCERIDES (test code = 2232) 96 MG/DL <150 HDL CHOLESTEROL (test code = 2220) 49 MG/DL >39 CALC LDL CHOL (test code = 2237) 113 MG/DL <100 H NOTE: CALCULATED LDL IS BASED ON KELSIE-FELIX METHOD WHICHINCLUDES ADJUSTABLE TRIGLYCERIDE:VLDL CHOLESTEROL RATIO.THIS FACTOR VARIES BY MEASURED TRIGLYCERIDE AND NON-HDLCHOLESTEROL CONCENTRATIONS WITH INCREASED CALCULATED LDL SEENIN HIGHER TRIGLYCERIDE OR LOWER NON-HDL SPECIMENS. FOR MOREINFORMATION, SEE CLIENT ANNOUNCEMENT AT [email or web address] /CalcLDL-C RISK RATIO LDL/HDL (test code = 2238) 2.31 RATIO <3.55 COMPREHENSIVE METABOLIC [id number] 06:44:40* Test Item Value Reference Range Interpretation Comme nts GLUCOSE (test code = 2217) 131 MG/DL 70-99 H BUN (test code = 2208) 20 MG/DL 8-23 CREATININE (test code = 2214) 1.47 MG/DL 0.80-1.40 H eGFR (2020 CKD-EPI) (test code = 15292) 51 ML/MIN/1.73 >60 L The NKF-ASN Taskforce recommends use of Cystatin C to confirm eGFR inadults at risk for CKD. [facility] offers eGFR with Cystatin C-Creatinineusing the 2020 CKD-EPI eGFR_creat-cystat equation (order code 3057) toincrease the accuracy of estimated GFR. For more information, contactyour accounting systems manager or see announcement [email or web address] CALC BUN/CREAT (test code = 2234) 14 RATIO 6-28 SODIUM (test code = 223) 141 MEQ/L 133-146 POTASSIUM (test code = 2228) 5.1 MEQ/L 3.5-5.4 CHLORIDE (test code = 5) 106 MEQ/L 95-107 CARBON DIOXIDE (test code = 2205) 23 MEQ/L 19-31 CALCIUM (test code = 2209) 9.1 MG/DL 8.5-10.5 PROTEIN, TOTAL (test code = 2228) 7.1 G/DL 6.1-8.3 ALBUMIN (test code = 2200) 3.9 G/DL 3.5-5.2 CALC GLOBULIN (test code = 2240) 3.2 G/DL 1.9-3.7 CALC A/G RATIO (test code = 2234) 1.2 RATIO 1.0-2.6 BILIRUBIN, TOTAL (test code = 2206) <0.2 MG/DL See_Comment [Automated me ssage] The system which generated this result transmitted reference range: <=1.2. The reference range was not used to interpret this result as normal/abnormal. ALKALINE PHOSPHATASE (test code = 2203) 119 U/L 40-125 AST (test code = 8) 14 U/L 9-50 ALT (test code = 2219) 12 U/L 5-50 HEMOGLOBIN [id number] 02:55:55* Test Item Value Reference Range Interpretation Comme nts HEMOGLOBIN A1c (test code = 24046) 5.8 % 4.2-5.6 H [employer] GUIDELINES FOR HGB A1C: PREDIABETES/INCREASED RISK . . . . . . . 5.7-6.4% DIAGNOSIS OF DIABETES . . . . . . . . . >=6.5% WITH CONFIRMATION OR APPROPRIATE SYMPTOMS NOTE: ASSAY MAY BE AFFECTED BY HEMOGLOBINOPATHIES (SICKLE CELL ANEMIA, S-C DISEASE, OTHERS) OR ARTIFICIALLY LOWERED BY DECREASED RED CELL SURVIVAL (HEMOLYTIC ANEMIAS, BLOOD LOSS, ETC.). CONSIDER ALTERNATE TESTING OR LABORATORY CONSULTATION. SURGICAL PATHOLOGY [id number] 18:30:03* Test Item Value Reference Range Interpretation Comme nts Case Report (test code = 8100300600) Surgical Pathology ?Case: [id number] ? Authorizing Provider: ?Colleen Contreras MD ?Collected: ? 06/21/2022 1301 ?Ordering Location: ? ? [facility] ? ? ? Received: ?06/21/2022 1705 ? Center [facility] ? Pathologist: ? Eliecer Barrios MD PhD ?Specimen: ? ?STOMACH, Gastric forceps bx's ? Final Diagnosis (test code = 0695646039) [id number] FuZzEwMzNcZnRuYmpcdWMx IHtccnRmMVxlcGljMTAyMD WbXT7xwZhwrWm5vUjtPCNe fbS3dZAxREchs1xuTDE9j8 pxlfuqNAFiPQifBh9yxVXn fMnzOmRyPEKnJUz1cJ27YB PnhG8yxUPmPDl6TMAsgJQn mvKlIbGyPSAnfSIsnQZ0RI DrMX4npyewLKvnVVycQMGo wpD9GQOryVOrQ8ZmYWJtDG 2jbvqdCZZ2HGrpGFMwIIG1 RpHoKUTdi4Tmdce0NvEudB FyZFxwbGFpblxmczIwXHBh tkKEUrUTYQ2ZFIFDFQXSQE 0BY7t2YHZofgUcACHhZKVK EMbKQALAJw8UHSLxKUITHW KFVTlTI3NKNMFSJ1zqGYOs DCIcKF5dUz1uEHFGMWNFVY NJQSBJREVOVElGSUVEXHBh ciAgICAgLSBOTyBILiBQWU xPUkktTElLRSBPUkdBTklT TSBJREVOVElGSUVEIEJZIE fPMEKCN5VJSFxNLCRnzgpi HODnAyTfTzXDq8ZyhPyuIY 1rjPbzgsOzCP7CXSG1Qjgx MjAyMyAgODowOCBBTVxwYX TnGfRjVRaaHRE5r3svqPCv XHNzdGVjZjIyMDAwXGFuc2 lcZGVmbGFuZzEwMzNcZnRu ZyvepEQzQGIvIdKid8hoi2 32qGMuw4pdDHEhEmJ7qIPb PEYqoGlfaoh0lMbeDvOzMX Tvt2xwteMdTyOqWQZfKYLr WKXbiMUpY226RBGtBAfoa5 vxh6XtZWYlhCDhz3W8FMZI ALgfMwRdQ360i1zxn9frmh HcmSZ9KFFwBBX2NSzoxqJa xeD7UEitlHTdWlV6LEqpcw QiQRdlbvYgilWsKgn4ZDXd G739WYU0yDvog2wgMIE2SS OiAAArIfcqYm8ouTLqI760 JOTpIDXLAHZeqJg2BMOzwd LfctXsjUZIm226Y092a7cx PKEsueCcyHiFqcxyl8xaA5 19XHBhcGVydzEyMjQwXHBh pXEnoXZ5QTQjCX5hodqfRL pvDUghCYQupfH4OOObzVHh A1LiHWQqWS1spgjiUOQ1EL lsRPRpWZE2MqHlIDRkk6Mx lgk9KmAgkr5mcg32NEH0u8 YqeXhsMLS5BUN8JpRlUg8m wQAoDJXpRB7jXtSykSErMN Qxvr63aPlpNKzfwhLpdE2u LmQgUEWgfPExDNGgNE4suL QiAOSdsK5ssloiHFRtEzXe kyjiAOTfiJaqvdMfGi9flC aoTFV9HRttT9snaO0hKfU8 FCugF5qnaT2xRLj2MXgaiC X1KGXzoG8xEG9khggtp3sp ACkgIGztETZxavI1csZ5VY YakRJqO1WieD4cXIRzOL5d cpddp9ejCVT9VIogGYSlOO L0GfOiPTKoo1Kyybv2PoJu a4ZcyAFwYLcgU44qj123MQ WwcjWzN2odjQUkuymykREv wnlwQCaosrV1YPSoCLXgMM luXGYxXGZzMjBcbGFuZzEw MzNcaGljaFxmMVxkYmNoXG PyMIcoR1icDfJtF9QyGIBp CvBduSNfAMfslND3IMVdUH Ejo92vkSt8MUEzgmjfz3Rj HSOooRExlLCpqM1zxuLcx3 gaNOBhHRMaUUVeJ2NoNRZ2 hFSoULNxpWDmhWU1RJ3kju OsWV4nOLSuLumyipPulVQl cgDaPWVpIJxjg2zsFO2rGK LymVdonM2gkDP1TVOtw3vc mLOpjGMsr7iiw1NuurKwDP cnUVZcKFrsXAXjYDKtOG3g DUHogVJknbOwm1E5RfcsyC EstilaJofzpeA8LZmssttl COFhSQmaZ7beWkEjWMHptA xqVkfwo5SqRLArETQhKruq cGFyfX0= Clinical Information (test code = 2019117829) Anemia, unspecified type [D64.9]Melena [K92.1]1. Eval for H. Pylori Gross Description (test code = 8209125636) q8blvLVqKREayRZGHPQiYW GiFI3brGhelBq1oTfhOAXr reQ7sGUdHGodb9vbZNJ9j0 rewgLDClhxOOFtWQ4vXXtr TTCvWY2qRcPyKQNzHoAxVU BhcGVydzEyMjQwXHBhcGVy pWQ9LQKcDL8zwnzmNQrjTM rgKLIhgvE9WLIfcUMrZ6Ir HIFfAV2uzmmsQTL1EOGQTh arKd5olQMyiFduGdIhSzOe YXJzZXQwXGZuaWwgQXJpYW s2zW0MYgwoUAM1PSCPHxcs UmdnkEsvu4FqeULbCZRgZQ xcaWQgNTEwMDAgXFxkYiBP GdSdZjU6HLBnYNi6JqP0RO h0THDAQNSoZpw8FXpkJWF1 QFz2RFOsFN1oBRooiFLmAE faItmdKIytG790SCurKOPs G8MjW0QlMFtwWcOqJXqsXM LlTGHqNSsuICCzL2VQDSIi MvKcJOm8ErKuPTr4MWjuJ7 ANAJPjQQXuOkW4Yky6GlE6 SSk8NJZEOm5bMZpeEak4Cv UlZoQ8DFrzSIYcIIKbUoSs ATPzOXWhIBrinQIfOH4jbJ xzIUWeVU0QXXSvVDjxBJPp EvVoD3GPO6fSGE2vIRtwVA IgDQpccGFyZCANClxwbGFp rsiuknEqSXi6puWlAYHpZh FhEOZlF49yi4OPu4QdHO4H AMw5hnOofoimoZ4dXMXema EoQIqHbTPvdP8sinHXSJdu KNQnO7YgvsVeOKqdRLJgca 1hbGluIGxhYmVsbGVkIHdp dGggdGhlIHBhdGllbnRcJ0 B8ulMzEJ9sRPGHJSKkyK6e UUGwLDRtr3RsvRPlgHgjT4 UknNXfOyWwe4NjYZThEAME M0TmD0N5STmXAWFijpEuB3 4cv6sqhQCka5XfnHOypTby iRGfwPLqOJ10OV0duJ4lmT ZcxOSzv83fmRS4fRBokVLc HpGvL35izwFqWPclHwCgNA 4aJTJjOQkkCDoyVAM8DKL3 DFKovFEjt5uhmgwhNO55UA hxZD61JZuhSX1hSIRiTCbi WCPcM1NdD3M7VMnkSIPpRO CqjXFhsX9odrPvmjIkwSm8 AGDsWIT9eDWcrLzrKTMtLf kscJB1VZHbDmEkaaDsu5Kj mGl7pWPmNTmkNKUyvG9dhT 4gQTEuXHBhciANClxwYXIg JCrvh5DjJNoylUgmVVIbGb ZcADgPbIfpEFOKD2drlWOe JTwvKHKTMKaFT7OHUU1NEJ KmjXMMKVE0OH9lCIkxGVBg E6CyU6TebcH0v8ktvCtqo6 HkoINnKR4fuZUxXH1YKMLn cmQgDQp9 Disclaimer (test code = [id number]) v2msvLUzZORlc9gvIDEuzU FuZzEwMzNcZnRuYmpcdWMx FWzfsuQqSBdcx6YhD5EsRt AwMFxhbnNpXGRlZmxhbmcx ZAWvRHN9wyXoVJFlWJopOJ KpZZeeNw9moDScaBcoJcWq RZVqw2qxemQHWRelLgNdZ2 34RTOkEAcax7lyj8MhJIZm oMVgz1T5AMUKyidicIy1kG wqJ71rn8F7IjstN6ovCUBm KSJzZ9LvGB4lWUJeMqf3VL X9REP4QTLeBJYyK0TzJC9d UMHwdPEiVSg6z5dmmHxyNX MoRQQ2t9ykPVsxypKkZS5v is7oxPv5d8jizhLaYIZpBT KacITTDPCeH1GtxRmbFv0d tQr9yVoeAupeTZM9Ove5PZ 3hhd07dqa7tFvrAWEzzvsx EkN6CSogJWAhanbbISn3VI qfEQUyyAS4WUHpxNHoX2Vs IRWmMD1kdgl8ARJ0XTldVK FlFcN8RIItcXFzZEVmuMib SGeoq375OHQ2AbToGD5wI9 Khd2B0yX5rhGCuUESriULq FiSuUZAzzu3mzCLxGDsto5 FuHUN8beF7lZZysUPcPNDc KB26Kmucd4UlRucqd5OhL9 3qnPP7VWxci8pdEM3oNoT5 zdHvNOmgh1chiT8kSdG4DU ysPV1qHD4gQPNfvK7cbzzj XHBnYnJkcmhlYWRccGdicm DdAg1niVbvWPV4HTokP9he lN3kLwD1GTarJ8owwY1oOR k9NIekuAX7RNYgcF2iZP9b nnwfd8htLTgyOUscLEHghe G3zsD7MHNfvBOlO3LvcM9g MERzYM1pqozdi8ubMRA7GU qaXZWePTK6YlHzVHNsr7Gc sse3GzExc7NsoEXvMCrvG2 8da483LVRhwhUrO4ophBGj xzwcsIPzapmjOZkbxuL8IM XjvwQau1FbTJCoCDV0RLmo VEsgjJWdVXWkdSyvh4jwK8 RscGFyXHBsYWluXGYxXGZz MjBcbGFuZzEwMzNcaGljaF fyJYuoViTyFAAoAOkiX5cb ArFeB5SvVRDlDgBjqZIuK5 ggVGhpcyByZXBvcnQgbWF5 HBruC9m8QUZcsoTbjWh1px GjOgXmCSAkXOW7TEkvjTBd SHFyg8IdawvgeFGiVj2jkW UpXLMsyJ7aGCDeMISkXKwh KH1jxSc3JBBPmTIydQGgEc HNUKEvLR32ugNkUHTLpxpu e1F2UWpwPABmq0LxbRLuQ1 lcs8HkNRXzd68aEA5wz5Z5 w1iiNIX7VG5ct6PtUIXxxF AfsMPeZQHfj7Atpcblc7Ae WXXorfAhs6VfPLUepzGmhL KrGSAtxjSglg9saiGmUNFw VAWqL5YmddvulMndzeGhXY Lwel5jqaNsGIM0WAJLMWTs EXXtc3YzwO4oxTSSKGN6kS Gwer1ynqRKjQTlSQQwea92 IOWrPF8fN9gfSITjSQKxqv GilSWqi8TlXBXviMJ7aTFk JI2BDtORi79iOOFmCWXXcd KgBRPpmOehdOG7ipW6hY2a IChGREEpLlx+IFRoZSBGRE MrAI6fzhLiw3VyuaWljPxu SGGjgSOin7ItkLKkp6KrrD mho0GnbCVwkPOfOM6bTWDv clxwYXIgVVRNQiBMYWJvcm X2r5SoLYVbXXBoUQX2zOnw bwd1RFOopG5cUIQqB3ixea hjGXxhBFDem9YwgM2vcKTJ aGRhi3WkcNHadOIXyRWoGW 9xikAaGMbZBPqTALU0ztYr TOKoj9SsSBfhX2ddV45quJ lyyCv4rCE4YRU3sV5rQyg+ IFxwYXJccGFyIEFwcHJvcH RpSQFzlJbrieCiR7VmtxWq dE4ijSHcxxYuIW8wEW4xT2 S3sBSfGUCcdxMeg6vaDZju dmUgYmVlbiByZXZpZXdlZC Qpw4VbFKztBIZ1QFvlsvVh bmNsdWRpbmcgSCZFLCBTcG IutMJaTYE2KQbxghGctqOc DH1wxU8elIbuoO8tdVKhnZ P1zpoiBQWgZIAwbNxzZRYj ML6gyIIwCJJgltZSiCdmtG ZyvA9eC6GeQCEuNNUvwg8g YUVxoM8bBWhtp4UchakyDZ IgZHKeRTYahkQpbn4tPATs uHRHSZ6SOGzzpHCiv5Oyhs UlB7qEFZK3AAGeViCyKdhi DAHeiQZgdCBiLREeca96KU YlnP8ncBmfTPVipD2laR1g bVeovB7gEkNxCkGsQSpcFC 7nEECbP4kjgXFiZIZyUGBp S2vhUdQnlI9zlPgqHBayEx ChMqBuTXjfSZP2vY== Embedded Images (test code = [id number]) [facility] RBC (in units), 1 Units 2022-06-26 15:56:55* Test Item Value Reference Range Interpretation Comme nts Cross Match Result (test code = 4409) Compatible ISBT Blood Type Code (test code = 275983) 5100 Unit Blood Type (test code = 4410) O Pos Unit Number (test code = 4411) [id number] Blood Expiration Date & Time (test code = 506258) [id number] Status Information (test code = 4412) Issued Product Identification (test code = 4413) Red Blood Cells Product Code (test code = 4414) [id number] Performed at [facility] Laboratory Services - [facility] Blood [address] [place] [id number] Free: [phone] No. [id number] [facility] WITH [id number] 10:28:21* Test Item Value Reference Range Interpretation Comme nts WBC (test code = 6690-2) 9.72 See_Comment [Automated messa ge] The system which generated this result transmitted reference range: 4.20 - 10.70 10*3/?L. The reference range was not used to interpret this result as normal/abnormal. RBC (test code = 789-8) 2.24 See_Comment L [Automated messa ge] The system which generated this result transmitted reference range: 4.26 - 5.52 10*6/?L. The reference range was not used to interpret this result as normal/abnormal. HGB (test code = 718-7) 6.5 g/dL 12.2-16.4 L HCT (test code = 4544-3) 19.9 % 38.4-49.3 L MCV (test code = 787-2) 88.8 fL 81.7-95.6 MCH (test code = 785-6) 29.0 pg 26.1-32.7 MCHC (test code = 786-4) 32.7 g/dL 31.2-35.0 RDW-SD (test code = 86777-9) 47.4 fL 38.5-51.6 RDW-CV (test code = 788-0) 16.0 % 12.1-15.4 H PLT (test code = 777-3) 314 See_Comment [Automated messa ge] The system which generated this result transmitted reference range: 150 - 328 10*3/?L. The reference range was not used to interpret this result as normal/abnormal. MPV (test code = 08384-9) 8.8 fL 9.8-13.0 L NRBC/100 WBC (test code = 3761663426) 0.9 See_Comment [Automated me ssage] The system which generated this result transmitted reference range: 0.0 - 10.0 /100 WBCs. The reference range was not used to interpret this result as normal/abnormal. NRBC x10^3 (test code = 4125838932) 0.09 See_Comment [Automated [employer]] The system which generated this result transmitted reference range: 10*3/?L. The reference range was not used to interpret this result as normal/abnormal. SEG % (test code = 53764-8) 74 % 33-76 MYELO % (test code = 61511-8) 1 % <=0 H LYMPH % (test code = 63893-6) 23 % 14-54 MONO % (test code = 43075-6) 1 % 0-4 EOS % (test code = 66582-5) 1 % 0-3 ANC (test code = 753-4) 7.19 10*3/uL 1.99-6.95 H BASO STIPPLING (test code = 703-9) Present A POLYCHROMASIA (test code = 35698-1) 2+ See_Comment [Automated [employer]] The system which generated this result transmitted reference range: 2+. The reference range was not used to interpret this result as normal/abnormal. SCHISTOCYTES (test code = 800-3) 1+ A TOXIC CHANGES (test code = 803-7) Present A Lab Interpretation (test code = 88472-8) Abnormal [facility] WITH [id number] 02:20:55* Test Item Value Reference Range Interpretation Comme nts WBC (test code = 6690-2) 12.62 See_Comment H [Automated message] The system which generated this result transmitted reference range: 4.20 - 10.70 10*3/?L. The reference range was not used to interpret this result as normal/abnormal. RBC (test code = 789-8) 2.41 See_Comment L [Automated message] The system which generated this result transmitted reference range: 4.26 - 5.52 10*6/?L. The reference range was not used to interpret this result as normal/abnormal. HGB (test code = 718-7) 6.9 g/dL 12.2-16.4 L HCT (test code = 4544-3) 21.7 % 38.4-49.3 L MCV (test code = 787-2) 90.0 fL 81.7-95.6 MCH (test code = 785-6) 28.6 pg 26.1-32.7 MCHC (test code = 786-4) 31.8 g/dL 31.2-35.0 RDW-SD (test code = 80268-4) 47.8 fL 38.5-51.6 RDW-CV (test code = 788-0) 16.1 % 12.1-15.4 H PLT (test code = 777-3) 302 See_Comment [Automated message] The system which generated this result transmitted reference range: 150 - 328 10*3/?L. The reference range was not used to interpret this result as normal/abnormal. MPV (test code = 86485-2) 8.7 fL 9.8-13.0 L NRBC/100 WBC (test code = 3693870953) 0.9 See_Comment [Automated message] The system which generated this result transmitted reference range: 0.0 - 10.0 /100 WBCs. The reference range was not used to interpret this result as normal/abnormal. NRBC x10^3 (test code = 4188359866) 0.11 See_Comment [Automated message] The system which generated this result transmitted reference range: 10*3/?L. The reference range was not used to interpret this result as normal/abnormal. SEG % (test code = 61766-6) 80 % 33-76 H BAND % (test code = 74887-2) 1 % 0-1 META % (test code = 50198-7) 2 % <=0 H LYMPH % (test code = 91104-3) 11 % 14-54 L MONO % (test code = 75654-6) 3 % 0-4 EOS % (test code = 02921-7) 3 % 0-3 ANC (test code = 753-4) 10.23 10*3/uL 1.99-6.95 H Lab Interpretation (test code = 04956-8) Abnormal [facility] Packed RBC (in units), 2 Units 2022-06-25 05:15:05* Test Item Value Reference Range Interpretation Comme nts Cross Match Result (test code = 4409) Compatible ISBT Blood Type Code (test code = 425164) 5100 Unit Blood Type (test code = 4410) O Pos Unit Number (test code = 4411) [id number] Blood Expiration Date & Time (test code = 246598) [id number] Status Information (test code = 4412) Released Product Identification (test code = 4413) Red Blood Cells Product Code (test code = 4414) [id number] Performed at [facility] Blood [address] Free: [phone] No. [id number] [facility] Packed RBC (in units), 2 Units 2022-06-25 05:15:05* Test Item Value Reference Range Interpretation Comme nts Cross Match Result (test code = 4409) Compatible ISBT Blood Type Code (test code = 466939) 5100 Unit Blood Type (test code = 4410) O Pos Unit Number (test code = 4411) [id number] Blood Expiration Date & Time (test code = 101706) [id number] Status Information (test code = 4412) Released Product Identification (test code = 4413) Red Blood Cells Product Code (test code = 4414) [id number] Performed at [facility] Blood [address]oll Free: [phone] No. [id number] [facility] Packed RBC (in units), 2 Units 2022-06-23 22:42:29* Test Item Value Reference Range Interpretation Comme nts Cross Match Result (test code = 4409) Compatible ISBT Blood Type Code (test code = 636041) 5100 Unit Blood Type (test code = 4410) O Pos Unit Number (test code = 4411) [id number] Blood Expiration Date & Time (test code = 363952) [id number] Status Information (test code = 4412) Issued Product Identification (test code = 4413) Red Blood Cells Product Code (test code = 4414) [id number] Performed at [facility] Blood [address] [address]Tgxm Free: [phone] No. [id number] [facility] Packed RBC (in units), 2 Units 2022-06-23 22:42:29* Test Item Value Reference Range Interpretation Comme nts Cross Match Result (test code = 4409) Compatible ISBT Blood Type Code (test code = 195703) 5100 Unit Blood Type (test code = 4410) O Pos Unit Number (test code = 4411) [id number] Blood Expiration Date & Time (test code = 538190) [id number] Status Information (test code = 4412) Issued Product Identification (test code = 4413) Red Blood Cells Product Code (test code = 4414) [id number] Performed at [facility] Laboratory [facility] Blood [address] [address] Free: [phone] No. [id number] [facility] Packed RBC (in units), 2 Units 2022-06-23 22:42:29* Test Item Value Reference Range Interpretation Comme nts Cross Match Result (test code = 4409) Compatible ISBT Blood Type Code (test code = 552318) 5100 Unit Blood Type (test code = 4410) O Pos Unit Number (test code = 4411) [id number] Blood Expiration Date & Time (test code = 466647) [id number] Status Information (test code = 4412) Issued Product Identification (test code = 4413) Red Blood Cells Product Code (test code = 4414) [id number] Performed at [facility] Laboratory Services [facility] Blood [address] [address]Oqir Free: [phone] No. [id number] [facility] WITH [id number] 21:16:02* Test Item Value Reference Range Interpretation Comme nts WBC (test code = 6690-2) 14.85 See_Comment H [Automated message] The system which generated this result transmitted reference range: 4.20 - 10.70 10*3/?L. The reference range was not used to interpret this result as normal/abnormal. RBC (test code = 789-8) 2.30 See_Comment L [Automated message] The system which generated this result transmitted reference range: 4.26 - 5.52 10*6/?L. The reference range was not used to interpret this result as normal/abnormal. HGB (test code = 718-7) 6.6 g/dL 12.2-16.4 L HCT (test code = 4544-3) 20.4 % 38.4-49.3 L MCV (test code = 787-2) 88.7 fL 81.7-95.6 MCH (test code = 785-6) 28.7 pg 26.1-32.7 MCHC (test code = 786-4) 32.4 g/dL 31.2-35.0 RDW-SD (test code = 59377-5) 45.9 fL 38.5-51.6 RDW-CV (test code = 788-0) 14.7 % 12.1-15.4 PLT (test code = 777-3) 339 See_Comment H [Automated message] The system which generated this result transmitted reference range: 150 - 328 10*3/?L. The reference range was not used to interpret this result as normal/abnormal. MPV (test code = 08554-0) 9.2 fL 9.8-13.0 L NRBC/100 WBC (test code = 9098955580) 1.2 See_Comment [Automated message] The system which generated this result transmitted reference range: 0.0 - 10.0 /100 WBCs. The reference range was not used to interpret this result as normal/abnormal. NRBC x10^3 (test code = 3214240116) 0.18 See_Comment [Automated message] The system which generated this result transmitted reference range: 10*3/?L. The reference range was not used to interpret this result as normal/abnormal. GRAN MAT (NEUT) % (test code = 770-8) 69.5 % IMM GRAN % (test code = 5484599083) 2.10 % LYMPH % (test code = 736-9) 20.1 % MONO % (test code = 5905-5) 7.3 % EOS % (test code = 713-8) 0.7 % BASO % (test code = 706-2) 0.3 % GRAN MAT x10^3(ANC) (test code = 0959004034) 10.31 10*3/uL 1.99-6.95 H IMM GRAN x10^3 (test code = 0610539317) 0.31 10*3/uL 0.00-0.06 H LYMPH x10^3 (test code = 731-0) 2.98 10*3/uL 1.09-3.23 MONO x10^3 (test code = 742-7) 1.09 10*3/uL 0.36-1.02 H EOS x10^3 (test code = 711-2) 0.11 10*3/uL 0.06-0.53 BASO x10^3 (test code = 704-7) 0.05 10*3/uL 0.01-0.09 ACANTHOCYTES (test code = 7789-1) 1+ See_Comment [Automated message] The system which generated this result transmitted reference range: 1+. The reference range was not used to interpret this result as normal/abnormal. Lab Interpretation (test code = 07467-2) Abnormal [facility] WITH [id number] 21:16:02* Test Item Value Reference Range Interpretation Comme nts WBC (test code = 6690-2) 14.85 See_Comment H [Automated message] The system which generated this result transmitted reference range: 4.20 - 10.70 10*3/?L. The reference range was not used to interpret this result as normal/abnormal. RBC (test code = 789-8) 2.30 See_Comment L [Automated message] The system which generated this result transmitted reference range: 4.26 - 5.52 10*6/?L. The reference range was not used to interpret this result as normal/abnormal. HGB (test code = 718-7) 6.6 g/dL 12.2-16.4 L HCT (test code = 4544-3) 20.4 % 38.4-49.3 L MCV (test code = 787-2) 88.7 fL 81.7-95.6 MCH (test code = 785-6) 28.7 pg 26.1-32.7 MCHC (test code = 786-4) 32.4 g/dL 31.2-35.0 RDW-SD (test code = 29309-0) 45.9 fL 38.5-51.6 RDW-CV (test code = 788-0) 14.7 % 12.1-15.4 PLT (test code = 777-3) 339 See_Comment H [Automated message] The system which generated this result transmitted reference range: 150 - 328 10*3/?L. The reference range was not used to interpret this result as normal/abnormal. MPV (test code = 19522-8) 9.2 fL 9.8-13.0 L NRBC/100 WBC (test code = 4634942989) 1.2 See_Comment [Automated message] The system which generated this result transmitted reference range: 0.0 - 10.0 /100 WBCs. The reference range was not used to interpret this result as normal/abnormal. NRBC x10^3 (test code = 3590507373) 0.18 See_Comment [Automated message] The system which generated this result transmitted reference range: 10*3/?L. The reference range was not used to interpret this result as normal/abnormal. GRAN MAT (NEUT) % (test code = 770-8) 69.5 % IMM GRAN % (test code = 9613566222) 2.10 % LYMPH % (test code = 736-9) 20.1 % MONO % (test code = 5905-5) 7.3 % EOS % (test code = 713-8) 0.7 % BASO % (test code = 706-2) 0.3 % GRAN MAT x10^3(ANC) (test code = 8551332222) 10.31 10*3/uL 1.99-6.95 H IMM GRAN x10^3 (test code = 3245727963) 0.31 10*3/uL 0.00-0.06 H LYMPH x10^3 (test code = 731-0) 2.98 10*3/uL 1.09-3.23 MONO x10^3 (test code = 742-7) 1.09 10*3/uL 0.36-1.02 H EOS x10^3 (test code = 711-2) 0.11 10*3/uL 0.06-0.53 BASO x10^3 (test code = 704-7) 0.05 10*3/uL 0.01-0.09 ACANTHOCYTES (test code = 7789-1) 1+ See_Comment [Automated message] The system which generated this result transmitted reference range: 1+. The reference range was not used to interpret this result as normal/abnormal. Lab Interpretation (test code = 45632-1) Abnormal [facility] WITH [id number] 21:16:02* Test Item Value Reference Range Interpretation Comme nts WBC (test code = 6690-2) 14.85 See_Comment H [Automated message] The system which generated this result transmitted reference range: 4.20 - 10.70 10*3/?L. The reference range was not used to interpret this result as normal/abnormal. RBC (test code = 789-8) 2.30 See_Comment L [Automated message] The system which generated this result transmitted reference range: 4.26 - 5.52 10*6/?L. The reference range was not used to interpret this result as normal/abnormal. HGB (test code = 718-7) 6.6 g/dL 12.2-16.4 L HCT (test code = 4544-3) 20.4 % 38.4-49.3 L MCV (test code = 787-2) 88.7 fL 81.7-95.6 MCH (test code = 785-6) 28.7 pg 26.1-32.7 MCHC (test code = 786-4) 32.4 g/dL 31.2-35.0 RDW-SD (test code = 07632-0) 45.9 fL 38.5-51.6 RDW-CV (test code = 788-0) 14.7 % 12.1-15.4 PLT (test code = 777-3) 339 See_Comment H [Automated message] The system which generated this result transmitted reference range: 150 - 328 10*3/?L. The reference range was not used to interpret this result as normal/abnormal. MPV (test code = 79317-6) 9.2 fL 9.8-13.0 L NRBC/100 WBC (test code = 0551911932) 1.2 See_Comment [Automated message] The system which generated this result transmitted reference range: 0.0 - 10.0 /100 WBCs. The reference range was not used to interpret this result as normal/abnormal. NRBC x10^3 (test code = 3062391719) 0.18 See_Comment [Automated message] The system which generated this result transmitted reference range: 10*3/?L. The reference range was not used to interpret this result as normal/abnormal. GRAN MAT (NEUT) % (test code = 770-8) 69.5 % IMM GRAN % (test code = 2869857213) 2.10 % LYMPH % (test code = 736-9) 20.1 % MONO % (test code = 5905-5) 7.3 % EOS % (test code = 713-8) 0.7 % BASO % (test code = 706-2) 0.3 % GRAN MAT x10^3(ANC) (test code = 3309275066) 10.31 10*3/uL 1.99-6.95 H IMM GRAN x10^3 (test code = 5718479410) 0.31 10*3/uL 0.00-0.06 H LYMPH x10^3 (test code = 731-0) 2.98 10*3/uL 1.09-3.23 MONO x10^3 (test code = 742-7) 1.09 10*3/uL 0.36-1.02 H EOS x10^3 (test code = 711-2) 0.11 10*3/uL 0.06-0.53 BASO x10^3 (test code = 704-7) 0.05 10*3/uL 0.01-0.09 ACANTHOCYTES (test code = 7789-1) 1+ See_Comment [Automated message] The system which generated this result transmitted reference range: 1+. The reference range was not used to interpret this result as normal/abnormal. Lab Interpretation (test code = 78099-3) Abnormal [facility] Packed RBC (in units), 2 Units 2022-06-22 20:34:55* Test Item Value Reference Range Interpretation Comme nts Cross Match Result (test code = 4409) Compatible ISBT Blood Type Code (test code = 253646) 5100 Unit Blood Type (test code = 4410) O Pos Unit Number (test code = 4411) [id number] Blood Expiration Date & Time (test code = 286633) [id number] Status Information (test code = 4412) Issued Product Identification (test code = 4413) Red Blood Cells Product Code (test code = 4414) [id number] Performed at [facility] Blood [address]oll Free: [phone] No. [id number] [facility] Packed RBC (in units), 2 Units 2022-06-22 20:34:55* Test Item Value Reference Range Interpretation Comme nts Cross Match Result (test code = 4409) Compatible ISBT Blood Type Code (test code = 456345) 5100 Unit Blood Type (test code = 4410) O Pos Unit Number (test code = 4411) [id number] Blood Expiration Date & Time (test code = 844047) 472735274467 Status Information (test code = 4412) Issued Product Identification (test code = 4413) Red Blood Cells Product Code (test code = 4414) [id number] Performed at [facility] Blood [address] [address]Ttfl Free: [phone] No. [id number] [facility] Packed RBC (in units), 2 Units 2022-06-22 20:34:55* Test Item Value Reference Range Interpretation Comme nts Cross Match Result (test code = 4409) Compatible ISBT Blood Type Code (test code = 960088) 5100 Unit Blood Type (test code = 4410) O Pos Unit Number (test code = 4411) [id number] Blood Expiration Date & Time (test code = 611243) [id number] Status Information (test code = 4412) Issued Product Identification (test code = 4413) Red Blood Cells Product Code (test code = 4414) [id number] Performed at [facility] Blood [place] [id number] Free: [phone] No. [id number] [facility] WITH [id number] 19:59:22* Test Item Value Reference Range Interpretation Comme nts WBC (test code = 6690-2) 19.32 See_Comment H [Automated message] The system which generated this result transmitted reference range: 4.20 - 10.70 10*3/?L. The reference range was not used to interpret this result as normal/abnormal. RBC (test code = 789-8) 2.28 See_Comment L [Automated message] The system which generated this result transmitted reference range: 4.26 - 5.52 10*6/?L. The reference range was not used to interpret this result as normal/abnormal. HGB (test code = 718-7) 6.5 g/dL 12.2-16.4 L HCT (test code = 4544-3) 20.0 % 38.4-49.3 L MCV (test code = 787-2) 87.7 fL 81.7-95.6 MCH (test code = 785-6) 28.5 pg 26.1-32.7 MCHC (test code = 786-4) 32.5 g/dL 31.2-35.0 RDW-SD (test code = 89562-0) 46.1 fL 38.5-51.6 RDW-CV (test code = 788-0) 14.8 % 12.1-15.4 PLT (test code = 777-3) 378 See_Comment H [Automated message] The system which generated this result transmitted reference range: 150 - 328 10*3/?L. The reference range was not used to interpret this result as normal/abnormal. MPV (test code = 73102-6) 9.1 fL 9.8-13.0 L NRBC/100 WBC (test code = 8229076708) 0.4 See_Comment [Automated message] The system which generated this result transmitted reference range: 0.0 - 10.0 /100 WBCs. The reference range was not used to interpret this result as normal/abnormal. NRBC x10^3 (test code = 2223467372) 0.08 See_Comment [Automated message] The system which generated this result transmitted reference range: 10*3/?L. The reference range was not used to interpret this result as normal/abnormal. GRAN MAT (NEUT) % (test code = 770-8) 82.8 % IMM GRAN % (test code = 5446098214) 1.30 % LYMPH % (test code = 736-9) 10.6 % MONO % (test code = 5905-5) 5.0 % EOS % (test code = 713-8) 0.1 % BASO % (test code = 706-2) 0.2 % GRAN MAT x10^3(ANC) (test code = 0105496395) 16.01 10*3/uL 1.99-6.95 H IMM GRAN x10^3 (test code = 6706931270) 0.26 10*3/uL 0.00-0.06 H LYMPH x10^3 (test code = 731-0) 2.04 10*3/uL 1.09-3.23 MONO x10^3 (test code = 742-7) 0.96 10*3/uL 0.36-1.02 EOS x10^3 (test code = 711-2) 0.06-0.53 L BASO x10^3 (test code = 704-7) 0.04 10*3/uL 0.01-0.09 TOXIC CHANGES (test code = 803-7) Present A GIANT PLATELETS (test code = 5908-9) Present See_Comment A [Automated message] The system which generated this result transmitted reference range: (none). The reference range was not used to interpret this result as normal/abnormal. Lab Interpretation (test code = 44411-1) Abnormal [facility] WITH [id number] 19:59:22* Test Item Value Reference Range Interpretation Comme nts WBC (test code = 6690-2) 19.32 See_Comment H [Automated message] The system which generated this result transmitted reference range: 4.20 - 10.70 10*3/?L. The reference range was not used to interpret this result as normal/abnormal. RBC (test code = 789-8) 2.28 See_Comment L [Automated message] The system which generated this result transmitted reference range: 4.26 - 5.52 10*6/?L. The reference range was not used to interpret this result as normal/abnormal. HGB (test code = 718-7) 6.5 g/dL 12.2-16.4 L HCT (test code = 4544-3) 20.0 % 38.4-49.3 L MCV (test code = 787-2) 87.7 fL 81.7-95.6 MCH (test code = 785-6) 28.5 pg 26.1-32.7 MCHC (test code = 786-4) 32.5 g/dL 31.2-35.0 RDW-SD (test code = 71993-0) 46.1 fL 38.5-51.6 RDW-CV (test code = 788-0) 14.8 % 12.1-15.4 PLT (test code = 777-3) 378 See_Comment H [Automated message] The system which generated this result transmitted reference range: 150 - 328 10*3/?L. The reference range was not used to interpret this result as normal/abnormal. MPV (test code = 31036-7) 9.1 fL 9.8-13.0 L NRBC/100 WBC (test code = 6205754112) 0.4 See_Comment [Automated message] The system which generated this result transmitted reference range: 0.0 - 10.0 /100 WBCs. The reference range was not used to interpret this result as normal/abnormal. NRBC x10^3 (test code = 5795772306) 0.08 See_Comment [Automated message] The system which generated this result transmitted reference range: 10*3/?L. The reference range was not used to interpret this result as normal/abnormal. GRAN MAT (NEUT) % (test code = 770-8) 82.8 % IMM GRAN % (test code = 0394955298) 1.30 % LYMPH % (test code = 736-9) 10.6 % MONO % (test code = 5905-5) 5.0 % EOS % (test code = 713-8) 0.1 % BASO % (test code = 706-2) 0.2 % GRAN MAT x10^3(ANC) (test code = 8145970613) 16.01 10*3/uL 1.99-6.95 H IMM GRAN x10^3 (test code = 5655209928) 0.26 10*3/uL 0.00-0.06 H LYMPH x10^3 (test code = 731-0) 2.04 10*3/uL 1.09-3.23 MONO x10^3 (test code = 742-7) 0.96 10*3/uL 0.36-1.02 EOS x10^3 (test code = 711-2) 0.06-0.53 L BASO x10^3 (test code = 704-7) 0.04 10*3/uL 0.01-0.09 TOXIC CHANGES (test code = 803-7) Present A GIANT PLATELETS (test code = 5908-9) Present See_Comment A [Automated message] The system which generated this result transmitted reference range: (none). The reference range was not used to interpret this result as normal/abnormal. Lab Interpretation (test code = 31703-9) Abnormal [facility] WITH [id number] 19:59:22* Test Item Value Reference Range Interpretation Comme nts WBC (test code = 6690-2) 19.32 See_Comment H [Automated message] The system which generated this result transmitted reference range: 4.20 - 10.70 10*3/?L. The reference range was not used to interpret this result as normal/abnormal. RBC (test code = 789-8) 2.28 See_Comment L [Automated message] The system which generated this result transmitted reference range: 4.26 - 5.52 10*6/?L. The reference range was not used to interpret this result as normal/abnormal. HGB (test code = 718-7) 6.5 g/dL 12.2-16.4 L HCT (test code = 4544-3) 20.0 % 38.4-49.3 L MCV (test code = 787-2) 87.7 fL 81.7-95.6 MCH (test code = 785-6) 28.5 pg 26.1-32.7 MCHC (test code = 786-4) 32.5 g/dL 31.2-35.0 RDW-SD (test code = 16682-6) 46.1 fL 38.5-51.6 RDW-CV (test code = 788-0) 14.8 % 12.1-15.4 PLT (test code = 777-3) 378 See_Comment H [Automated message] The system which generated this result transmitted reference range: 150 - 328 10*3/?L. The reference range was not used to interpret this result as normal/abnormal. MPV (test code = 72014-8) 9.1 fL 9.8-13.0 L NRBC/100 WBC (test code = 4122589068) 0.4 See_Comment [Automated message] The system which generated this result transmitted reference range: 0.0 - 10.0 /100 WBCs. The reference range was not used to interpret this result as normal/abnormal. NRBC x10^3 (test code = 2698206651) 0.08 See_Comment [Automated message] The system which generated this result transmitted reference range: 10*3/?L. The reference range was not used to interpret this result as normal/abnormal. GRAN MAT (NEUT) % (test code = 770-8) 82.8 % IMM GRAN % (test code = 1863734564) 1.30 % LYMPH % (test code = 736-9) 10.6 % MONO % (test code = 5905-5) 5.0 % EOS % (test code = 713-8) 0.1 % BASO % (test code = 706-2) 0.2 % GRAN MAT x10^3(ANC) (test code = 5073798500) 16.01 10*3/uL 1.99-6.95 H IMM GRAN x10^3 (test code = 2151767835) 0.26 10*3/uL 0.00-0.06 H LYMPH x10^3 (test code = 731-0) 2.04 10*3/uL 1.09-3.23 MONO x10^3 (test code = 742-7) 0.96 10*3/uL 0.36-1.02 EOS x10^3 (test code = 711-2) 0.06-0.53 L BASO x10^3 (test code = 704-7) 0.04 10*3/uL 0.01-0.09 TOXIC CHANGES (test code = 803-7) Present A GIANT PLATELETS (test code = 5908-9) Present See_Comment A [Automated message] The system which generated this result transmitted reference range: (none). The reference range was not used to interpret this result as normal/abnormal. Lab Interpretation (test code = 09324-1) Abnormal [facility] [id number] 12:18:21* Test Item Value Reference Range Interpretation Comme nts IRON (test code = 2716328426) 44 ug/dL 50-160 L TIBC (test code = 7291429626) 287 ug/dL 250-410 % FE SAT (test code = 7241236987) 15 % 20-50 L Lab Interpretation (test cod e = 81089-8) Abnormal [facility] [id number] 12:18:21* Test Item Value Reference Range Interpretation Comme nts IRON (test code = 3928912860) 44 ug/dL 50-160 L TIBC (test code = 2128055911) 287 ug/dL 250-410 % FE SAT (test code = 1557009009) 15 % 20-50 L Lab Interpretation (test cod e = 82446-5) Abnormal [facility] [id number] 12:18:21* Test Item Value Reference Range Interpretation Comme nts IRON (test code = 6063454615) 44 ug/dL 50-160 L TIBC (test code = 7918540914) 287 ug/dL 250-410 % FE SAT (test code = 2126022088) 15 % 20-50 L Lab Interpretation (test cod e = 34706-0) [facility] 23:33:13* Test Item Value Reference Range Interpretation Comme nts HGB (test code = 718-7) 6.7 g/dL 12.2-16.4 L Lab Interpretation (test cod e = 65125-5) [facility]normal [facility] 23:33:13* Test Item Value Reference Range Interpretation Comme nts HGB (test code = 718-7) 6.7 g/dL 12.2-16.4 L Lab Interpretation (test cod e = 96887-6) Abnormal [facility]-05 23:33:13* Test Item Value Reference Range Interpretation Comme nts HGB (test code = 718-7) 6.7 g/dL 12.2-16.4 L Lab Interpretation (test cod e = 59850-9) Abnormal [facility] Packed RBC (in units), 1 Units 2022-06-21 16:31:09* Test Item Value Reference Range Interpretation Comme nts Cross Match Result (test code = 4409) Compatible ISBT Blood Type Code (test code = 745995) 5100 Unit Blood Type (test code = 4410) O Pos Unit Number (test code = 4411) [id number] Blood Expiration Date & Time (test code = 430728) 416659348660 Status Information (test code = 4412) Issued Product Identification (test code = 4413) Red Blood Cells Product Code (test code = 4414) [id number] Performed at [facility] Laboratory Services [facility] Blood [address] [place] [id number] Free: [phone] No. [id number] [facility] Packed RBC (in units), 1 Units 2022-06-21 16:31:09* Test Item Value Reference Range Interpretation Comme nts Cross Match Result (test code = 4409) Compatible ISBT Blood Type Code (test code = 414062) 5100 Unit Blood Type (test code = 4410) O Pos Unit Number (test code = 4411) [id number] Blood Expiration Date & Time (test code = 599150) 309635397141 Status Information (test code = 4412) Issued Product Identification (test code = 4413) Red Blood Cells Product Code (test code = 4414) [id number] Performed at [facility] Laboratory Services [facility] Blood [address] [place] [id number] Free: [phone] No. [id number] [facility] Packed RBC (in units), 1 Units 2022-06-21 16:31:09* Test Item Value Reference Range Interpretation Comme nts Cross Match Result (test code = 4409) Compatible ISBT Blood Type Code (test code = 982881) 5100 Unit Blood Type (test code = 4410) O Pos Unit Number (test code = 4411) [id number] Blood Expiration Date & Time (test code = 351769) 338554090720 Status Information (test code = 4412) Issued Product Identification (test code = 4413) Red Blood Cells Product Code (test code = 4414) [id number] Performed at [facility] Laboratory Services - [facility] Blood [address] [place] [id number] Free: [phone] No. [id number] [facility] METABOLIC PANEL (NA, K, CL, CO2, GLUCOSE, BUN, CREATININE, CA)2022-06-21 15:52:50* Test Item Value Reference Range Interpretation Comme nts NA (test code = 7026805024) 133 mmol/L 135-145 L K (test code = 4987810002) 4.7 mmol/L 3.5-5.0 CL (test code = 8078025137) 101 mmol/L 98-108 CO2 TOTAL (test code = 8035406743) 29 mmol/L 23-31 AGAP (test code = 5538911220) 3 2-16 BUN (test code = 1132003755) 37 mg/dL 7-23 H GLUCOSE (test code = 4009098883) 123 mg/dL 70-110 H CREATININE (test code = 8799639231) 1.42 mg/dL 0.60-1.25 H CALCIUM (test code = 3702681665) 8.1 mg/dL 8.6-10.6 L eGFR (test code = 1585123107) 49.3 mL/min/1.73m2 MARGARITO (test code = MARGARITO) Association of Glomerular Filtration Rate (GFR) and Staging of Kidney Disease* + --+ --+ ------+| GFR (mL/min/1.73 m2) ?| With Kidney Damage ?| ?Without Kidney Damage+ --------+ --------+ +| ?>90 ?| ?Stage one ?| ? Normal ?+ ---+ ---+ -------+| ?60-89 ?| ?Stage two ?| ? Decreased GFR ? + --+ --+ ------+| ?30-59 ?| ?Stage three ?| ? Stage three ? + --+ --+ ------+| ?15-29 ?| ?Stage four ? | ? Stage four ?+ ---+ ---+ -------+| ?<15 (or dialysis) ? ?| ?Stage five ? | ? Stage five ?+ ---+ ---+ -------+ *Each stage assumes the associated GFR level has been in effect for at least three months. ?Stages 1 to 5, with or without kidney disease, indicate chronic kidney disease. Notes: Determination of stages one and two (with eGFR >59mL/min/1.73 m2) requires estimation of kidney damage for at least three months as defined by structural or functional abnormalities of the kidney, manifested by either:Pathological abnormalities or Markers of kidney damage (including abnormalities in the composition of the blood or urine or abnormalities in imaging tests). Lab Interpretation (test code = 41184-2) Abnormal [facility] METABOLIC PANEL (NA, K, CL, CO2, GLUCOSE, BUN, CREATININE, CA)2022-06-21 15:52:50* Test Item Value Reference Range Interpretation Comme nts NA (test code = 8485767018) 133 mmol/L 135-145 L K (test code = 9211375073) 4.7 mmol/L 3.5-5.0 CL (test code = 5119142040) 101 mmol/L 98-108 CO2 TOTAL (test code = 0322756403) 29 mmol/L 23-31 AGAP (test code = 8316772005) 3 2-16 BUN (test code = 7287757275) 37 mg/dL 7-23 H GLUCOSE (test code = 7491218112) 123 mg/dL 70-110 H CREATININE (test code = 9028337983) 1.42 mg/dL 0.60-1.25 H CALCIUM (test code = 1093689165) 8.1 mg/dL 8.6-10.6 L eGFR (test code = 1694359676) 49.3 mL/min/1.73m2 MARGARITO (test code = MARGARITO) Association of Glomerular Filtration Rate (GFR) and Staging of Kidney Disease* + --+ --+ ------+| GFR (mL/min/1.73 m2) ?| With Kidney Damage ?| ?Without Kidney Damage+ --------+ --------+ +| ?>90 ?| ?Stage one ?| ? Normal ?+ ---+ ---+ -------+| ?60-89 ?| ?Stage two ?| ? Decreased GFR ? + --+ --+ ------+| ?30-59 ?| ?Stage three ?| ? Stage three ? + --+ --+ ------+| ?15-29 ?| ?Stage four ? | ? Stage four ?+ ---+ ---+ -------+| ?<15 (or dialysis) ? ?| ?Stage five ? | ? Stage five ?+ ---+ ---+ -------+ *Each stage assumes the associated GFR level has been in effect for at least three months. ?Stages 1 to 5, with or without kidney disease, indicate chronic kidney disease. Notes: Determination of stages one and two (with eGFR >59mL/min/1.73 m2) requires estimation of kidney damage for at least three months as defined by structural or functional abnormalities of the kidney, manifested by either:Pathological abnormalities or Markers of kidney damage (including abnormalities in the composition of the blood or urine or abnormalities in imaging tests). Lab Interpretation (test code = 58433-3) Abnormal [facility] METABOLIC PANEL (NA, K, CL, CO2, GLUCOSE, BUN, CREATININE, CA)2022-06-21 15:52:50* Test Item Value Reference Range Interpretation Comme nts NA (test code = 3752437317) 133 mmol/L 135-145 L K (test code = 0356147496) 4.7 mmol/L 3.5-5.0 CL (test code = 3446059454) 101 mmol/L 98-108 CO2 TOTAL (test code = 3637294620) 29 mmol/L 23-31 AGAP (test code = 8899819024) 3 2-16 BUN (test code = 9015651590) 37 mg/dL 7-23 H GLUCOSE (test code = 2954055570) 123 mg/dL 70-110 H CREATININE (test code = 8612299619) 1.42 mg/dL 0.60-1.25 H CALCIUM (test code = 2563644590) 8.1 mg/dL 8.6-10.6 L eGFR (test code = 8556387537) 49.3 mL/min/1.73m2 MARGARITO (test code = MARGARITO) Association of Glomerular Filtration Rate (GFR) and Staging of Kidney Disease* + --+ --+ ------+| GFR (mL/min/1.73 m2) ?| With Kidney Damage ?| ?Without Kidney Damage+ --------+ --------+ +| ?>90 ?| ?Stage one ?| ? Normal ?+ ---+ ---+ -------+| ?60-89 ?| ?Stage two ?| ? Decreased GFR ? + --+ --+ ------+| ?30-59 ?| ?Stage three ?| ? Stage three ? + --+ --+ ------+| ?15-29 ?| ?Stage four ? | ? Stage four ?+ ---+ ---+ -------+| ?<15 (or dialysis) ? ?| ?Stage five ? | ? Stage five ?+ ---+ ---+ -------+ *Each stage assumes the associated GFR level has been in effect for at least three months. ?Stages 1 to 5, with or without kidney disease, indicate chronic kidney disease. Notes: Determination of stages one and two (with eGFR >59mL/min/1.73 m2) requires estimation of kidney damage for at least three months as defined by structural or functional abnormalities of the kidney, manifested by either:Pathological abnormalities or Markers of kidney damage (including abnormalities in the composition of the blood or urine or abnormalities in imaging tests). Lab Interpretation (test code = 74727-9) [facility] [id number] 15:42:00* Test Item Value Reference Range Interpretation Comme nts ABO & RH (test code = 20) O Positive IAT (test code = 1185) Negative [facility] [id number] 15:42:00* Test Item Value Reference Range Interpretation Comme nts ABO & RH (test code = 20) O Positive IAT (test code = 1185) [facility] - [facility] [id number] 15:42:00* Test Item Value Reference Range Interpretation Comme nts ABO & RH (test code = 20) O Positive IAT (test code = 1185) Negative [facility]2023-[facility]-05 14:35:49* Test Item Value Reference Range Interpretation Comme nts HGB (test code = 718-7) 6.2 g/dL 12.2-16.4 L Lab Interpretation (test cod e = 51469-5) Abnormal [facility]2023-[facility]-05 14:35:49* Test Item Value Reference Range Interpretation Comme nts HGB (test code = 718-7) 6.2 g/dL 12.2-16.4 L Lab Interpretation (test cod e = 46246-2) Abnormal [facility]2023-[facility]-05 14:35:49* Test Item Value Reference Range Interpretation Comme nts HGB (test code = 718-7) 6.2 g/dL 12.2-16.4 L Lab Interpretation (test cod e = 77143-7) Abnormal [facility]. METABOLIC PANEL ([id number])2022-06-21 05:20:46* Test Item Value Reference Range Interpretation Comme nts NA (test code = 6756157002) 133 mmol/L 135-145 L K (test code = 9165364406) 4.6 mmol/L 3.5-5.0 CL (test code = 0934356670) 98 mmol/L 98-108 CO2 TOTAL (test code = 6242149556) 26 mmol/L 23-31 AGAP (test code = 0909033549) 9 2-16 BUN (test code = 3812851867) 47 mg/dL 7-23 H GLUCOSE (test code = 2955334514) 143 mg/dL 70-110 H CREATININE (test code = 4801925010) 1.49 mg/dL 0.60-1.25 H TOTAL BILI (test code = 4431901853) 0.4 mg/dL 0.1-1.1 CALCIUM (test code = 5179693512) 8.2 mg/dL 8.6-10.6 L T PROTEIN (test code = 6199026454) 5.8 g/dL 6.3-8.2 L ALBUMIN (test code = 4251777040) 2.9 g/dL 3.5-5.0 L ALK PHOS (test code = 8872026598) 106 U/L 34-122 ALTv (test code = 1742-6) 24 U/L 5-50 AST(SGOT) (test code = 2681458125) 17 U/L 13-40 eGFR (test code = 4708991482) 46.6 mL/min/1.73m2 MARGARITO (test code = MARGARITO) Association of Glomerular Filtration Rate (GFR) and Staging of Kidney Disease* + --+ --+ ------+| GFR (mL/min/1.73 m2) ?| With Kidney Damage ?| ?Without Kidney Damage+ --------+ --------+ +| ?>90 ?| ?Stage one ?| ? Normal ?+ ---+ ---+ -------+| ?60-89 ?| ?Stage two ?| ? Decreased GFR ? + --+ --+ ------+| ?30-59 ?| ?Stage three ?| ? Stage three ? + --+ --+ ------+| ?15-29 ?| ?Stage four ? | ? Stage four ?+ ---+ ---+ -------+| ?<15 (or dialysis) ? ?| ?Stage five ? | ? Stage five ?+ ---+ ---+ -------+ *Each stage assumes the associated GFR level has been in effect for at least three months. ?Stages 1 to 5, with or without kidney disease, indicate chronic kidney disease. Notes: Determination of stages one and two (with eGFR >59mL/min/1.73 m2) requires estimation of kidney damage for at least three months as defined by structural or functional abnormalities of the kidney, manifested by either:Pathological abnormalities or Markers of kidney damage (including abnormalities in the composition of the blood or urine or abnormalities in imaging tests). Lab Interpretation (test code = 25442-4) Abnormal [facility]. METABOLIC PANEL ([id number])2022-06-21 05:20:46* Test Item Value Reference Range Interpretation Comme nts NA (test code = 9858563645) 133 mmol/L 135-145 L K (test code = 0012347002) 4.6 mmol/L 3.5-5.0 CL (test code = 8167688228) 98 mmol/L 98-108 CO2 TOTAL (test code = 7781583778) 26 mmol/L 23-31 AGAP (test code = 5980903585) 9 2-16 BUN (test code = 8578899350) 47 mg/dL 7-23 H GLUCOSE (test code = 9988996761) 143 mg/dL 70-110 H CREATININE (test code = 2361299956) 1.49 mg/dL 0.60-1.25 H TOTAL BILI (test code = 2756722231) 0.4 mg/dL 0.1-1.1 CALCIUM (test code = 3338049092) 8.2 mg/dL 8.6-10.6 L T PROTEIN (test code = 7396435246) 5.8 g/dL 6.3-8.2 L ALBUMIN (test code = 2721387184) 2.9 g/dL 3.5-5.0 L ALK PHOS (test code = 0176361355) 106 U/L 34-122 ALTv (test code = 1742-6) 24 U/L 5-50 AST(SGOT) (test code = 7865351225) 17 U/L 13-40 eGFR (test code = 0248520639) 46.6 mL/min/1.73m2 MARGARITO (test code = MARGARITO) Association of Glomerular Filtration Rate (GFR) and Staging of Kidney Disease* + --+ --+ ------+| GFR (mL/min/1.73 m2) ?| With Kidney Damage ?| ?Without Kidney Damage+ --------+ --------+ +| ?>90 ?| ?Stage one ?| ? Normal ?+ ---+ ---+ -------+| ?60-89 ?| ?Stage two ?| ? Decreased GFR ? + --+ --+ ------+| ?30-59 ?| ?Stage three ?| ? Stage three ? + --+ --+ ------+| ?15-29 ?| ?Stage four ? | ? Stage four ?+ ---+ ---+ -------+| ?<15 (or dialysis) ? ?| ?Stage five ? | ? Stage five ?+ ---+ ---+ -------+ *Each stage assumes the associated GFR level has been in effect for at least three months. ?Stages 1 to 5, with or without kidney disease, indicate chronic kidney disease. Notes: Determination of stages one and two (with eGFR >59mL/min/1.73 m2) requires estimation of kidney damage for at least three months as defined by structural or functional abnormalities of the kidney, manifested by either:Pathological abnormalities or Markers of kidney damage (including abnormalities in the composition of the blood or urine or abnormalities in imaging tests). Lab Interpretation (test code = 14820-0) Abnormal [facility]. METABOLIC PANEL ([id number])2022-06-21 05:20:46* Test Item Value Reference Range Interpretation Comme nts NA (test code = 9861162556) 133 mmol/L 135-145 L K (test code = 3096403969) 4.6 mmol/L 3.5-5.0 CL (test code = 2010177575) 98 mmol/L 98-108 CO2 TOTAL (test code = 2189216492) 26 mmol/L 23-31 AGAP (test code = 2177782889) 9 2-16 BUN (test code = 6610198026) 47 mg/dL 7-23 H GLUCOSE (test code = 2562427337) 143 mg/dL 70-110 H CREATININE (test code = 5434872723) 1.49 mg/dL 0.60-1.25 H TOTAL BILI (test code = 5837433679) 0.4 mg/dL 0.1-1.1 CALCIUM (test code = 9112045480) 8.2 mg/dL 8.6-10.6 L T PROTEIN (test code = 2750870253) 5.8 g/dL 6.3-8.2 L ALBUMIN (test code = 9097208738) 2.9 g/dL 3.5-5.0 L ALK PHOS (test code = 7674998573) 106 U/L 34-122 ALTv (test code = 1742-6) 24 U/L 5-50 AST(SGOT) (test code = 4675134916) 17 U/L 13-40 eGFR (test code = 6742878612) 46.6 mL/min/1.73m2 MARGARITO (test code = MARGARITO) Association of Glomerular Filtration Rate (GFR) and Staging of Kidney Disease* + --+ --+ ------+| GFR (mL/min/1.73 m2) ?| With Kidney Damage ?| ?Without Kidney Damage+ --------+ --------+ +| ?>90 ?| ?Stage one ?| ? Normal ?+ ---+ ---+ -------+| ?60-89 ?| ?Stage two ?| ? Decreased GFR ? + --+ --+ ------+| ?30-59 ?| ?Stage three ?| ? Stage three ? + --+ --+ ------+| ?15-29 ?| ?Stage four ? | ? Stage four ?+ ---+ ---+ -------+| ?<15 (or dialysis) ? ?| ?Stage five ? | ? Stage five ?+ ---+ ---+ -------+ *Each stage assumes the associated GFR level has been in effect for at least three months. ?Stages 1 to 5, with or without kidney disease, indicate chronic kidney disease. Notes: Determination of stages one and two (with eGFR >59mL/min/1.73 m2) requires estimation of kidney damage for at least three months as defined by structural or functional abnormalities of the kidney, manifested by either:Pathological abnormalities or Markers of kidney damage (including abnormalities in the composition of the blood or urine or abnormalities in imaging tests). Lab Interpretation (test code = 04671-3) [facility] 05:20:26* Test Item Value Reference Range Interpretation Comme nts LIPASE (test code = 8003358463) 29 U/L 0-220 Lab Interpretation (test cod e = 17567-7) Normal [facility] 05:20:26* Test Item Value Reference Range Interpretation Comme nts LIPASE (test code = 3066118324) 29 U/L 0-220 Lab Interpretation (test cod e = 43135-3) Normal [facility] 05:20:26* Test Item Value Reference Range Interpretation Comme nts LIPASE (test code = 4093193567) 29 U/L 0-220 Lab Interpretation (test cod e = 93889-5) Normal [facility] [id number] 05:17:25* Test Item Value Reference Range Interpretation Comme nts APTT Patient (test code = 3173-2) 36 See_Comment [Automated message] The system which generated this result transmitted reference range: 23 - 38 Seconds. The reference range was not used to interpret this result as normal/abnormal. MARGARITO (test code = MARGARITO) The [facility] patient population mean normal value for aPTT is 30 seconds. Lab Interpretation (test code = 87755-3) Normal [facility] [id number] 05:17:25* Test Item Value Reference Range Interpretation Comme nts APTT Patient (test code = 3173-2) 36 See_Comment [Automated message] The system which generated this result transmitted reference range: 23 - 38 Seconds. The reference range was not used to interpret this result as normal/abnormal. MARGARITO (test code = MARGARITO) The [facility] patient population mean normal value for aPTT is 30 seconds. Lab Interpretation (test code = 45077-2) Normal [facility] [id number] 05:17:25* Test Item Value Reference Range Interpretation Comme nts APTT Patient (test code = 3173-2) 36 See_Comment [Automated message] The system which generated this result transmitted reference range: 23 - 38 Seconds. The reference range was not used to interpret this result as normal/abnormal. MARGARITO (test code = MARGARITO) The [facility] patient population mean normal value for aPTT is 30 seconds. Lab Interpretation (test code = 84956-9) Normal [facility] TylerPROTHROMBIN [facility] / [id number] 05:15:08* Test Item Value Reference Range Interpretation Comme nts PROTIME PATIENT (test code = 5964-2) 14.9 See_Comment H [Automated messa ge] The system which generated this result transmitted reference range: 12.0 - 14.7 Seconds. The reference range was not used to interpret this result as normal/abnormal. INR (test code = 6301-6) 1.2 Normal INR <1.1; Warfarin Therapeutic range 2.0 to 3.0 or 2.5 to 3.5, depending upon the indications. Lab Interpretation (test code = 72833-9) [facility]normal [facility]PROT[facility]OM[facility] / [id number] 05:15:08* Test Item Value Reference Range Interpretation Comme nts PROTIME PATIENT (test code = 5964-2) 14.9 See_Comment H [Automated messa ge] The system which generated this result transmitted reference range: 12.0 - 14.7 Seconds. The reference range was not used to interpret this result as normal/abnormal. INR (test code = 6301-6) 1.2 Normal INR <1.1; Warfarin Therapeutic range 2.0 to 3.0 or 2.5 to 3.5, depending upon the indications. Lab Interpretation (test code = 89420-3) [facility]normal [facility] TylerPROT[facility]OM[facility] / [id number] 05:15:08* Test Item Value Reference Range Interpretation Comme [facility] PROTIME PATIENT (test code = 5964-2) 14.9 See_Comment H [Automated messa ge] The system which generated this result transmitted reference range: 12.0 - 14.7 Seconds. The reference range was not used to interpret this result as normal/abnormal. INR (test code = 6301-6) 1.2 Normal INR <1.1; Warfarin Therapeutic range 2.0 to 3.0 or 2.5 to 3.5, depending upon the indications. Lab Interpretation (test code = 10029-6) [facility] WITH [id number] 05:07:27* Test Item Value Reference Range Interpretation Comme [facility] WBC (test code = 6690-2) 14.30 See_Comment H [Automated message] The system which generated this result transmitted reference range: 4.20 - 10.70 10*3/?L. The reference range was not used to interpret this result as normal/abnormal. RBC (test code = 789-8) 2.51 See_Comment L [Automated message] The system which generated this result transmitted reference range: 4.26 - 5.52 10*6/?L. The reference range was not used to interpret this result as normal/abnormal. HGB (test code = 718-7) 7.0 g/dL 12.2-16.4 L HCT (test code = 4544-3) 22.8 % 38.4-49.3 L MCV (test code = 787-2) 90.8 fL 81.7-95.6 MCH (test code = 785-6) 27.9 pg 26.1-32.7 MCHC (test code = 786-4) 30.7 g/dL 31.2-35.0 L RDW-SD (test code = 82201-3) 45.6 fL 38.5-51.6 RDW-CV (test code = 788-0) 13.9 % 12.1-15.4 PLT (test code = 777-3) 509 See_Comment H [Automated message] The system which generated this result transmitted reference range: 150 - 328 10*3/?L. The reference range was not used to interpret this result as normal/abnormal. MPV (test code = 93788-7) 9.5 fL 9.8-13.0 L NRBC/100 WBC (test code = 5860378633) 0.1 See_Comment [Automated message] The system which generated this result transmitted reference range: 0.0 - 10.0 /100 WBCs. The reference range was not used to interpret this result as normal/abnormal. NRBC x10^3 (test code = 4543950079) 0.02 See_Comment [Automated message] The system which generated this result transmitted reference range: 10*3/?L. The reference range was not used to interpret this result as normal/abnormal. GRAN MAT (NEUT) % (test code = 770-8) 76.8 % IMM GRAN % (test code = 1528324383) 1.40 % LYMPH % (test code = 736-9) 15.5 % MONO % (test code = 5905-5) 5.8 % EOS % (test code = 713-8) 0.2 % BASO % (test code = 706-2) 0.3 % GRAN MAT x10^3(ANC) (test code = 7475059200) 10.98 10*3/uL 1.99-6.95 H IMM GRAN x10^3 (test code = 6708319599) 0.20 10*3/uL 0.00-0.06 H LYMPH x10^3 (test code = 731-0) 2.22 10*3/uL 1.09-3.23 MONO x10^3 (test code = 742-7) 0.83 10*3/uL 0.36-1.02 EOS x10^3 (test code = 711-2) 0.03 10*3/uL 0.06-0.53 L BASO x10^3 (test code = 704-7) 0.04 10*3/uL 0.01-0.09 Lab Interpretation (test code = 44449-1) Abnormal [facility] WITH [id number] 05:07:27* Test Item Value Reference Range Interpretation Comme nts WBC (test code = 6690-2) 14.30 See_Comment H [Automated message] The system which generated this result transmitted reference range: 4.20 - 10.70 10*3/?L. The reference range was not used to interpret this result as normal/abnormal. RBC (test code = 789-8) 2.51 See_Comment L [Automated message] The system which generated this result transmitted reference range: 4.26 - 5.52 10*6/?L. The reference range was not used to interpret this result as normal/abnormal. HGB (test code = 718-7) 7.0 g/dL 12.2-16.4 L HCT (test code = 4544-3) 22.8 % 38.4-49.3 L MCV (test code = 787-2) 90.8 fL 81.7-95.6 MCH (test code = 785-6) 27.9 pg 26.1-32.7 MCHC (test code = 786-4) 30.7 g/dL 31.2-35.0 L RDW-SD (test code = 18426-2) 45.6 fL 38.5-51.6 RDW-CV (test code = 788-0) 13.9 % 12.1-15.4 PLT (test code = 777-3) 509 See_Comment H [Automated message] The system which generated this result transmitted reference range: 150 - 328 10*3/?L. The reference range was not used to interpret this result as normal/abnormal. MPV (test code = 91577-7) 9.5 fL 9.8-13.0 L NRBC/100 WBC (test code = 3383504608) 0.1 See_Comment [Automated message] The system which generated this result transmitted reference range: 0.0 - 10.0 /100 WBCs. The reference range was not used to interpret this result as normal/abnormal. NRBC x10^3 (test code = 4219206256) 0.02 See_Comment [Automated message] The system which generated this result transmitted reference range: 10*3/?L. The reference range was not used to interpret this result as normal/abnormal. GRAN MAT (NEUT) % (test code = 770-8) 76.8 % IMM GRAN % (test code = 4592033229) 1.40 % LYMPH % (test code = 736-9) 15.5 % MONO % (test code = 5905-5) 5.8 % EOS % (test code = 713-8) 0.2 % BASO % (test code = 706-2) 0.3 % GRAN MAT x10^3(ANC) (test code = 6743513961) 10.98 10*3/uL 1.99-6.95 H IMM GRAN x10^3 (test code = 2435634505) 0.20 10*3/uL 0.00-0.06 H LYMPH x10^3 (test code = 731-0) 2.22 10*3/uL 1.09-3.23 MONO x10^3 (test code = 742-7) 0.83 10*3/uL 0.36-1.02 EOS x10^3 (test code = 711-2) 0.03 10*3/uL 0.06-0.53 L BASO x10^3 (test code = 704-7) 0.04 10*3/uL 0.01-0.09 Lab Interpretation (test code = 66080-4) Abnormal [facility] WITH [id number] 05:07:27* Test Item Value Reference Range Interpretation Comme nts WBC (test code = 6690-2) 14.30 See_Comment H [Automated message] The system which generated this result transmitted reference range: 4.20 - 10.70 10*3/?L. The reference range was not used to interpret this result as normal/abnormal. RBC (test code = 789-8) 2.51 See_Comment L [Automated message] The system which generated this result transmitted reference range: 4.26 - 5.52 10*6/?L. The reference range was not used to interpret this result as normal/abnormal. HGB (test code = 718-7) 7.0 g/dL 12.2-16.4 L HCT (test code = 4544-3) 22.8 % 38.4-49.3 L MCV (test code = 787-2) 90.8 fL 81.7-95.6 MCH (test code = 785-6) 27.9 pg 26.1-32.7 MCHC (test code = 786-4) 30.7 g/dL 31.2-35.0 L RDW-SD (test code = 82887-6) 45.6 fL 38.5-51.6 RDW-CV (test code = 788-0) 13.9 % 12.1-15.4 PLT (test code = 777-3) 509 See_Comment H [Automated message] The system which generated this result transmitted reference range: 150 - 328 10*3/?L. The reference range was not used to interpret this result as normal/abnormal. MPV (test code = 35424-7) 9.5 fL 9.8-13.0 L NRBC/100 WBC (test code = 2639844028) 0.1 See_Comment [Automated message] The system which generated this result transmitted reference range: 0.0 - 10.0 /100 WBCs. The reference range was not used to interpret this result as normal/abnormal. NRBC x10^3 (test code = 5966021302) 0.02 See_Comment [Automated message] The system which generated this result transmitted reference range: 10*3/?L. The reference range was not used to interpret this result as normal/abnormal. GRAN MAT (NEUT) % (test code = 770-8) 76.8 % IMM GRAN % (test code = 9296667847) 1.40 % LYMPH % (test code = 736-9) 15.5 % MONO % (test code = 5905-5) 5.8 % EOS % (test code = 713-8) 0.2 % BASO % (test code = 706-2) 0.3 % GRAN MAT x10^3(ANC) (test code = 9111401378) 10.98 10*3/uL 1.99-6.95 H IMM GRAN x10^3 (test code = 9110191273) 0.20 10*3/uL 0.00-0.06 H LYMPH x10^3 (test code = 731-0) 2.22 10*3/uL 1.09-3.23 MONO x10^3 (test code = 742-7) 0.83 10*3/uL 0.36-1.02 EOS x10^3 (test code = 711-2) 0.03 10*3/uL 0.06-0.53 L BASO x10^3 (test code = 704-7) 0.04 10*3/uL 0.01-0.09 Lab Interpretation (test code = 34617-9) [facility] Rkmfzpm4380-54-05 05:03:00* Test Item Value Reference Range Interpretation Comme nts ABO & RH (test code = 20) O Positive IAT (test code = 1185) Negative [facility] [id number] 05:03:00* Test Item Value Reference Range Interpretation Comme nts ABO & RH (test code = 20) O Positive IAT (test code = 1185) [facility] [id number] 05:03:00* Test Item Value Reference Range Interpretation Comme nts ABO & RH (test code = 20) O Positive IAT (test code = 1185) Negative [facility] TylerN-TERMINAL [id number] 18:45:11* Test Item Value Reference Range Interpretation Comme nts NT-proBNP (test code = 4032266168) 169 pg/mL <=125 H MARGARITO (test code = MARGARITO) Biotin has been reported to cause a negative bias, interpret results relative to patient's use of biotin. Lab Interpretation (test code = 51763-1) [facility]normal [facility] TylerTR[facility] [id number] 18:45:11* Test Item Value Reference Range Interpretation Comme nts TROPONIN I (test code = 9666882828) 0.003 ng/mL <=0.034 MARGARITO (test code = MRAGARITO) Reference (Normal) Range (defined by the 99th percentile reference limit): <= 0.034 ng/mL Note: Cardiac troponin begins to rise 3-4 hours after the onset of ischemia. Repeat in 4-6 hours if the sample was drawn within 3-4 hours of the onset of the symptom and found normal. Diagnosis of myocardial injury is made with acute changes in cTn concentrations with at least one serial sample above the 99th percentile upper reference limit (URL), taken together with the patient's clinical presentation. Biotin has been reported to cause a negative bias, interpret results relative to patient's use of biotin. Lab Interpretation (test code = 50505-4) Normal [facility]. METABOLIC PANEL (43183)2022-05-31 18:35:05* Test Item Value Reference Range Interpretation Comme nts NA (test code = 1253555810) 138 mmol/L 135-145 K (test code = 9237263476) 4.9 mmol/L 3.5-5.0 CL (test code = 0816909994) 105 mmol/L 98-108 CO2 TOTAL (test code = 8529598763) 29 mmol/L 23-31 AGAP (test code = 4078263721) 4 2-16 BUN (test code = 8412564895) 20 mg/dL 7-23 GLUCOSE (test code = 7151742072) 104 mg/dL 70-110 CREATININE (test code = 9826921956) 0.93 mg/dL 0.60-1.25 TOTAL BILI (test code = 5920835813) 0.5 mg/dL 0.1-1.1 CALCIUM (test code = 9601089667) 8.6 mg/dL 8.6-10.6 T PROTEIN (test code = 6584491496) 6.4 g/dL 6.3-8.2 ALBUMIN (test code = 3926171286) 3.3 g/dL 3.5-5.0 L ALK PHOS (test code = 0267883666) 146 U/L 34-122 H ALTv (test code = 1742-6) 48 U/L 5-50 AST(SGOT) (test code = 7365029119) 26 U/L 13-40 eGFR (test code = 3411886686) 80.3 mL/min/1.73m2 MARGARITO (test code = MARGARITO) Association of Glomerular Filtration Rate (GFR) and Staging of Kidney Disease* + --+ --+ ------+| GFR (mL/min/1.73 m2) ?| With Kidney Damage ?| ?Without Kidney Damage+ --------+ --------+ +| ?>90 ?| ?Stage one ?| ? Normal ?+ ---+ ---+ -------+| ?60-89 ?| ?Stage two ?| ? Decreased GFR ? + --+ --+ ------+| ?30-59 ?| ?Stage three ?| ? Stage three ? + --+ --+ ------+| ?15-29 ?| ?Stage four ? | ? Stage four ?+ ---+ ---+ -------+| ?<15 (or dialysis) ? ?| ?Stage five ? | ? Stage five ?+ ---+ ---+ -------+ *Each stage assumes the associated GFR level has been in effect for at least three months. ?Stages 1 to 5, with or without kidney disease, indicate chronic kidney disease. Notes: Determination of stages one and two (with eGFR >59mL/min/1.73 m2) requires estimation of kidney damage for at least three months as defined by structural or functional abnormalities of the kidney, manifested by either:Pathological abnormalities or Markers of kidney damage (including abnormalities in the composition of the blood or urine or abnormalities in imaging tests). Lab Interpretation (test code = 92520-9) Abnormal [facility] WITH [id number] 18:25:22* Test Item Value Reference Range Interpretation Comme nts WBC (test code = 6690-2) 11.98 See_Comment H [Automated [employer]works] The system which generated this result transmitted reference range: 4.20 - 10.70 10*3/?L. The reference range was not used to interpret this result as normal/abnormal. RBC (test code = 789-8) 3.89 See_Comment L [Automated PBworks] The system which generated this result transmitted reference range: 4.26 - 5.52 10*6/?L. The reference range was not used to interpret this result as normal/abnormal. HGB (test code = 718-7) 11.1 g/dL 12.2-16.4 L HCT (test code = 4544-3) 35.4 % 38.4-49.3 L MCV (test code = 787-2) 91.0 fL 81.7-95.6 MCH (test code = 785-6) 28.5 pg 26.1-32.7 MCHC (test code = 786-4) 31.4 g/dL 31.2-35.0 RDW-SD (test code = 48253-4) 45.1 fL 38.5-51.6 RDW-CV (test code = 788-0) 13.5 % 12.1-15.4 PLT (test code = 777-3) 416 See_Comment H [Automated messa ge] The system which generated this result transmitted reference range: 150 - 328 10*3/?L. The reference range was not used to interpret this result as normal/abnormal. MPV (test code = 38247-2) 9.4 fL 9.8-13.0 L NRBC/100 WBC (test code = 8260582228) 0.0 See_Comment [Automated [employer] ssage] The system which generated this result transmitted reference range: 0.0 - 10.0 /100 WBCs. The reference range was not used to interpret this result as normal/abnormal. NRBC x10^3 (test code = 5873781311) See_Comment [Automated messa ge] The system which generated this result transmitted reference range: 10*3/?L. The reference range was not used to interpret this result as normal/abnormal. GRAN MAT (NEUT) % (test code = 770-8) 77.5 % IMM GRAN % (test code = 4097573347) 1.40 % LYMPH % (test code = 736-9) 13.8 % MONO % (test code = 5905-5) 6.9 % EOS % (test code = 713-8) 0.1 % BASO % (test code = 706-2) 0.3 % GRAN MAT x10^3(ANC) (test code = 9179015033) 9.28 10*3/uL 1.99-6.95 H IMM GRAN x10^3 (test code = 2344610782) 0.17 10*3/uL 0.00-0.06 H LYMPH x10^3 (test code = 731-0) 1.65 10*3/uL 1.09-3.23 MONO x10^3 (test code = 742-7) 0.83 10*3/uL 0.36-1.02 EOS x10^3 (test code = 711-2) 0.06-0.53 L BASO x10^3 (test code = 704-7) 0.04 10*3/uL 0.01-0.09 Lab Interpretation (test code = 66721-8) [id number] 10:24:26* Test Item Value Reference Range Interpretation Comme [facility] D-DIMER (test code = 1405) 3.52 UG/ML FEU See_Comment H NOTE: Provided r eference range is established for evaluation of Deep Venous Thrombosis/Pulmonary Embolus (DVT/PE). Results below cutoff value of <=0.49 UG/ML FEU have a high negative predictive value forDVT/PE. No reference range is established for disseminatedintra-vascul ar coagulation (DIC). [facility] has important pathology staff changes effective 04/17/2022. New pathology staff will provide uninterrupted, excellent patient care and clinical consultation. See URL: [email or web address]. UNLESS OTHERWISE INDICATED, ALL TESTING PERFORMED AT [facility] [address] [place] [address] INSIDE ACCOUNT REPRESENTATIVE: NATHANIEL WHITE M.D. CLIA NUMBER [id number] [facility] [place]. [id number] [Automated message] The system which generated this result transmitted reference range: <=0.49. The reference range was not used to interpret this result as normal/abnormal. TSH, THIRD [id number] 04:13:36* Test Item Value Reference Range Interpretation Comme [facility] TSH, THIRD GENERATION (test code = 2821) 7.260 UIU/ML 0.400-4.100 H PROTHROMBIN TIME (PT)2022-05-31 04:01:37* Test Item Value Reference Range Interpretation Comme [facility] PROTHROMBIN TIME (PT) (test code = 1402) 14.2 SECONDS 12.5-14.7 INR (test code = 04768) 1.1 SEE BELOW CURRENT RECOMMENDATIONS ARE FOR AN INR OF 2.0-3.0 FOR ALL PATIENTS ON VITAMIN K ANTAGONISTS, EXCEPT THOSE WITH PROSTHETIC HEART VALVES, FOR WHOM INR OF 2.5-3.5 IS RECOMMENDED. [id number] 04:01:37* Test Item Value Reference Range Interpretation Comme [facility] PTT (test code = 1403) 36.4 SECONDS 25.2-40.0 HEMOGLOBIN [id number] 03:10:49* Test Item Value Reference Range Interpretation Comme [facility] HEMOGLOBIN A1c (test code = 91629) 7.1 % 4.2-5.6 H [employer] GUIDELINES FOR HGB A1C: PREDIABETES/INCREASED RISK . . . . . . . 5.7-6.4% DIAGNOSIS OF DIABETES . . . . . . . . . >=6.5% WITH CONFIRMATION OR APPROPRIATE SYMPTOMS NOTE: ASSAY MAY BE AFFECTED BY HEMOGLOBINOPATHIES (SICKLE CELL ANEMIA, S-C DISEASE, OTHERS) OR ARTIFICIALLY LOWERED BY DECREASED RED CELL SURVIVAL (HEMOLYTIC ANEMIAS, BLOOD LOSS, ETC.). CONSIDER ALTERNATE TESTING OR LABORATORY CONSULTATION. CBC W/AUTO DIFF WITH [id number] 02:35:31* Test Item Value Reference Range Interpretation Comme nts WBC (test code = 1001) 10.3 K/UL 3.5-11.0 RBC (test code = 1002) 3.69 M/UL 4.50-6.10 L HEMOGLOBIN (test code = 1003) 11.0 G/DL 13.5-17.0 L HEMATOCRIT (test code = 1004) 32.4 % 40.0-51.0 L MCV (test code = 1005) 87.8 fL 80.0-99.0 MCH (test code = 1006) 29.8 PG 25.0-33.0 MCHC (test code = 1007) 34.0 G/DL 31.0-36.0 RDW (test code = 1038) 12.5 % 11.5-15.0 NEUTROPHILS (test code = 1008) 65.6 % LYMPHOCYTES (test code = 1010) 23.9 % MONOCYTES (test code = 1011) 7.2 % EOSINOPHILS (test code = 1012) 1.1 % BASOPHILS (test code = 1013) 0.3 % IMMATURE GRANULOCYTES (test code = 1036) 1.9 % NUCLEATED RBCS (test code = 1065) 0.0 /100 WBC'S See_Comment [Automated [employer] ge] The system which generated this result transmitted reference range: 0.0. The reference range was not used to interpret this result as normal/abnormal. PLATELET COUNT (test code = 1015) 406 K/UL 130-400 H ABSOLUTE NEUTROPHILS (test code = 1066) 6.79 K/UL 1.50-7.50 ABSOLUTE LYMPHOCYTES (test code = 1067) 2.47 K/UL 1.00-4.00 ABSOLUTE MONOCYTES (test code = 1068) 0.74 K/UL 0.20-1.00 ABSOLUTE EOSINOPHILS (test code = 1040) 0.11 K/UL 0.00-0.50 ABSOLUTE BASOPHILS (test code = 1069) 0.03 K/UL 0.00-0.20 ABS IMMATURE GRANULOCYTES (test code = 1020) 0.20 K/UL 0.00-0.10 H ABS NUCLEATED RBCS (test code = 49583) 0.02 K/UL 0.00-0.11 HEMOGLOBIN [id number] 05:03:39* Test Item Value Reference Range Interpretation Comme nts HEMOGLOBIN A1c (test code = 69638) 6.1 % 4.2-5.6 H LIPID [id number] 02:31:32* Test Item Value Reference Range Interpretation Comme nts CHOLESTEROL (test code = 2210) 168 MG/DL <200 TRIGLYCERIDES (test code = 2232) 56 MG/DL <150 HDL CHOLESTEROL (test code = 2220) 69 MG/DL >39 CALC LDL CHOL (test code = 2236) 85 MG/DL <100 NOTE: CALCULATED LDL IS BASED ON KELSIE-FELIX METHOD WHICHINCLUDES ADJUSTABLE TRIGLYCERIDE:VLDL CHOLESTEROL RATIO.THIS FACTOR VARIES BY MEASURED TRIGLYCERIDE AND NON-HDLCHOLESTEROL CONCENTRATIONS WITH INCREASED CALCULATED LDL SEENIN HIGHER TRIGLYCERIDE OR LOWER NON-HDL SPECIMENS. FOR MOREINFORMATION, SEE CLIENT ANNOUNCEMENT AT [email or web address] RATIO LDL/HDL (test code = 2238) 1.23 RATIO <3.55 COMPREHENSIVE METABOLIC [id number] 02:31:32* Test Item Value Reference Range Interpretation Comme nts GLUCOSE (test code = 2217) 100 MG/DL 70-99 H BUN (test code = 8) 22 MG/DL 8-23 CREATININE (test code = 2214) 1.16 MG/DL 0.80-1.40 eGFR (2020 CKD-EPI) (test code = 20637) 68 ML/MIN/1.73 >60 CALC BUN/CREAT (test code = 2235) 19 RATIO 6-28 SODIUM (test code = 223) 139 MEQ/L 133-146 POTASSIUM (test code = 2228) 4.2 MEQ/L 3.5-5.4 CHLORIDE (test code = 2215) 100 MEQ/L 95-107 CARBON DIOXIDE (test code = 2206) 26 MEQ/L 19-31 CALCIUM (test code = 2208) 9.2 MG/DL 8.5-10.5 PROTEIN, TOTAL (test code = 2228) 7.2 G/DL 6.1-8.3 ALBUMIN (test code = 2200) 4.2 G/DL 3.5-5.2 CALC GLOBULIN (test code = 2240) 3.0 G/DL 1.9-3.7 CALC A/G RATIO (test code = 223) 1.4 RATIO 1.0-2.6 BILIRUBIN, TOTAL (test code = 2206) 1.1 MG/DL See_Comment [Automated me ssage] The system which generated this result transmitted reference range: <=1.2. The reference range was not used to interpret this result as normal/abnormal. ALKALINE PHOSPHATASE (test code = 220) 123 U/L 40-125 AST (test code = 221) 26 U/L 9-50 ALT (test code = 221) 32 U/L 5-50 UNLESS OTHERWISE INDICATED, ALL TESTING PERFORMED [facility] [employer] [address] [place] [address] INSIDE ACCOUNT REPRESENTATIVE: NASH CARDENAS M.D. CLIA NUMBER [id number] [facility] [place] [place]. [id number] TROPONIN [id number] 01:35:28* Test Item Value Reference Range Interpretation Comments TROPONIN I (test code = 7911158113) 0.006 ng/mL See_Comment [Automated message] The system which generated this result transmitted reference range: <=0.034. The reference range was not used to interpret this result as normal/abnormal. MARGARITO (test code = MARGARITO) Reference (Normal) Range (defined by the 99th percentile reference limit): <= 0.034 ng/mL Note: Cardiac troponin begins to rise 3-4 hours after the onset of ischemia. Repeat in 4-6 hours if the sample was drawn within 3-4 hours of the onset of the symptom and found normal. Diagnosis of myocardial injury is made with acute changes in cTn concentrations with at least one serial sample above the 99th percentile upper reference limit (URL), taken together with the patient's clinical presentation. Biotin has been reported to cause a negative bias, interpret results relative to patient's use of biotin. Lab Interpretation (test code = 96275-7) Normal [facility]20[facility] 01:24:47* Test Item Value Reference Range Interpretation Comme nts MAGNESIUM (test code = 7607149056) 1.7 mg/dL 1.7-2.4 Lab Interpretation (test cod e = 73467-2) Normal [facility]. METABOLIC PANEL (99785)2021-06-04 01:24:27* Test Item Value Reference Range Interpretation Comme nts NA (test code = 4801815662) 138 mmol/L 135-145 K (test code = 4990694471) 4.3 mmol/L 3.5-5.0 CL (test code = 2983938136) 100 mmol/L 98-108 CO2 TOTAL (test code = 3408084749) 27 mmol/L 23-31 AGAP (test code = 8210192997) 2-16 BUN (test code = 2183626464) 22 mg/dL 7-23 GLUCOSE (test code = 4786196251) 112 mg/dL 70-110 H CREATININE (test code = 2208323197) 1.06 mg/dL 0.60-1.25 TOTAL BILI (test code = 2323852174) 1.2 mg/dL 0.1-1.1 H CALCIUM (test code = 3834282423) 9.2 mg/dL 8.6-10.6 T PROTEIN (test code = 6000879446) 8.0 g/dL 6.3-8.2 ALBUMIN (test code = 0285221210) 4.4 g/dL 3.5-5.0 ALK PHOS (test code = 7279764041) 182 U/L 34-122 H ALTv (test code = 1742-6) 37 U/L 5-50 AST(SGOT) (test code = 3113553311) 46 U/L 13-40 H eGFR (test code = 5052364897) mL/min/1.73m2 MARGARITO (test code = MARGARITO) Association of Glomerular Filtration Rate (GFR) and Staging of Kidney Disease* + --+ --+ ------+| GFR (mL/min/1.73 m2) ?| With Kidney Damage ?| ?Without Kidney Damage+ --------+ --------+ +| ?>90 ?| ?Stage one ?| ? Normal ?+ ---+ ---+ -------+| ?60-89 ?| ?Stage two ?| ? Decreased GFR ? + --+ --+ ------+| ?30-59 ?| ?Stage three ?| ? Stage three ? + --+ --+ ------+| ?15-29 ?| ?Stage four ? | ? Stage four ?+ ---+ ---+ -------+| ?<15 (or dialysis) ? ?| ?Stage five ? | ? Stage five ?+ ---+ ---+ -------+ *Each stage assumes the associated GFR level has been in effect for at least three months. ?Stages 1 to 5, with or without kidney disease, indicate chronic kidney disease. Notes: Determination of stages one and two (with eGFR >59mL/min/1.73 m2) requires estimation of kidney damage for at least three months as defined by structural or functional abnormalities of the kidney, manifested by either:Pathological abnormalities or Markers of kidney damage (including abnormalities in the composition of the blood or urine or abnormalities in imaging tests). Lab Interpretation (test code = 26982-2) [facility]normal [facility] TylerLIPASE2022-[facility] 01:24:07* Test Item Value Reference Range Interpretation Comme nts LIPASE (test code = 1761784657) 53 U/L 0-220 Lab Interpretation (test cod e = 25743-9) Normal [facility] WITH [id number] 01:12:46* Test Item Value Reference Range Interpretation Comme nts WBC (test code = 6690-2) See_Comment H [Automated message] The system which generated this result transmitted reference range: 4.20 - 10.70 10*3/?L. The reference range was not used to interpret this result as normal/abnormal. RBC (test code = 789-8) See_Comment [Automated message] The system which generated this result transmitted reference range: 4.26 - 5.52 10*6/?L. The reference range was not used to interpret this result as normal/abnormal. HGB (test code = 718-7) 14.9 g/dL 12.2-16.4 HCT (test code = 4544-3) 46.0 % 38.4-49.3 MCV (test code = 787-2) 88.1 fL 81.7-95.6 MCH (test code = 785-6) 28.5 pg 26.1-32.7 MCHC (test code = 786-4) 32.4 g/dL 31.2-35.0 RDW-SD (test code = 80317-2) 41.7 fL 38.5-51.6 RDW-CV (test code = 788-0) 12.9 % 12.1-15.4 PLT (test code = 777-3) See_Comment [Automated message] The system which generated this result transmitted reference range: 150 - 328 10*3/?L. The reference range was not used to interpret this result as normal/abnormal. MPV (test code = 65229-3) 10.9 fL 9.8-13.0 NRBC/100 WBC (test code = 8574516855) See_Comment [Automated message] The system which generated this result transmitted reference range: 0.0 - 10.0 /100 WBCs. The reference range was not used to interpret this result as normal/abnormal. NRBC x10^3 (test code = 4447903121) <0.01 See_Comment [Automated message] The system which generated this result transmitted reference range: 10*3/?L. The reference range was not used to interpret this result as normal/abnormal. GRAN MAT (NEUT) % (test code = 770-8) 89.4 % IMM GRAN % (test code = 9714619391) 0.30 % LYMPH % (test code = 736-9) 8.6 % MONO % (test code = 5905-5) 1.3 % EOS % (test code = 713-8) 0.2 % BASO % (test code = 706-2) 0.2 % GRAN MAT x10^3(ANC) (test code = 5514140461) 11.87 10*3/uL 1.99-6.95 H IMM GRAN x10^3 (test code = 6927056908) 0.04 10*3/uL 0.00-0.06 LYMPH x10^3 (test code = 731-0) 1.14 10*3/uL 1.09-3.23 MONO x10^3 (test code = 742-7) 0.17 10*3/uL 0.36-1.02 L EOS x10^3 (test code = 711-2) 0.03 10*3/uL 0.06-0.53 L BASO x10^3 (test code = 704-7) <0.03 0.01-0.09 Lab Interpretation (test code = 98033-4) Abnormal [facility], THIRD [id number] 06:35:08* Test Item Value Reference Range Interpretation Comme nts TSH, THIRD GENERATION (test code = 2821) 4.080 UIU/ML 0.400-4.100 FREE [id number] 06:35:08* Test Item Value Reference Range Interpretation Comme nts FREE T3 (test code = 4273) 3.6 PG/ML 2.2-4.2 FREE T4 (THYROXINE)2021-03-20 06:35:08* Test Item Value Reference Range Interpretation Comme nts FREE T4 (THYROXINE) (test code = 2823) 1.20 NG/DL 0.80-1.90 UNLESS OTHERWISE INDICATED, ALL TESTING PERFORMED [facility] [address] [place] [address] INSIDE ACCOUNT REPRESENTATIVE: NASH CARDENAS M.D. CLIA NUMBER [id number] [place]. [id number] TSH, THIRD [id number] 06:29:41* Test Item Value Reference Range Interpretation Comme nts TSH, THIRD GENERATION (test code = 2821) 4.550 UIU/ML 0.400-4.100 H UNLESS OTHERWISE INDICATED, ALL TESTING PERFORMED [facility] [address] [place], [place] [address] INSIDE ACCOUNT REPRESENTATIVE: NASH CARDENAS M.D. CLIA NUMBER [id number] [place]. [id number] CBC W/AUTO DIFF WITH [id number] 06:15:32* Test Item Value Reference Range Interpretation Comme nts WBC (test code = 1001) 4.5 K/UL 3.5-11.0 RBC (test code = 1002) 4.92 M/UL 4.50-6.10 HEMOGLOBIN (test code = 1003) 14.4 G/DL 13.5-17.0 HEMATOCRIT (test code = 1004) 41.6 % 40.0-51.0 MCV (test code = 1005) 84.6 fL 80.0-99.0 MCH (test code = 1006) 29.3 PG 25.0-33.0 MCHC (test code = 1007) 34.6 G/DL 31.0-36.0 RDW (test code = 1038) 13.2 % 11.5-15.0 NEUTROPHILS (test code = 1008) 34.2 % LYMPHOCYTES (test code = 1010) 45.4 % MONOCYTES (test code = 1011) 12.8 % EOSINOPHILS (test code = 1012) 6.0 % BASOPHILS (test code = 1013) 0.9 % IMMATURE GRANYLOCYTES (test code = 1036) 0.7 % NUCLEATED RBCS (test code = 1065) 0.0 /100 WBC'S See_Comment [Automated messa ge] The system which generated this result transmitted reference range: 0.0. The reference range was not used to interpret this result as normal/abnormal. PLATELET COUNT (test code = 1015) 214 K/UL 130-400 ABSOLUTE NEUTROPHILS (test code = 1066) 1.53 K/UL 1.50-7.50 ABSOLUTE LYMPHOCYTES (test code = 1067) 2.03 K/UL 1.00-4.00 ABSOLUTE MONOCYTES (test code = 1068) 0.57 K/UL 0.20-1.00 ABSOLUTE EOSINOPHILS (test code = 1040) 0.27 K/UL 0.00-0.50 ABSOLUTE BASOPHILS (test code = 1069) 0.04 K/UL 0.00-0.20 ABS IMMATURE GRANULOCYTES (test code = 1020) 0.03 K/UL 0.00-0.10 ABS NUCLEATED RBCS (test code = 11298) 0.00 K/UL 0.00-0.11 HEMOGLOBIN [id number] 05:58:18* Test Item Value Reference Range Interpretation Comme nts HEMOGLOBIN A1c (test code = 57414) 6.2 % 4.2-5.6 H LIPID [id number] 04:33:08* Test Item Value Reference Range Interpretation Comme nts CHOLESTEROL (test code = 2210) 183 MG/DL <200 TRIGLYCERIDES (test code = 2232) 229 MG/DL <150 H HDL CHOLESTEROL (test code = 2220) 46 MG/DL >39 CALC LDL CHOL (test code = 2237) 102 MG/DL <100 H NOTE: CALCULATED LDL IS BASED ON KELSIE-FELIX METHOD WHICHINCLUDES ADJUSTABLE TRIGLYCERIDE:VLDL CHOLESTEROL RATIO.THIS FACTOR VARIES BY MEASURED TRIGLYCERIDE AND NON-HDLCHOLESTEROL CONCENTRATIONS WITH INCREASED CALCULATED LDL SEENIN HIGHER TRIGLYCERIDE OR LOWER NON-HDL SPECIMENS. FOR MOREINFORMATION, SEE CLIENT ANNOUNCEMENT AT [email or web address] RISK RATIO LDL/HDL (test code = 2237) 2.22 RATIO <3.55 COMPREHENSIVE METABOLIC [id number] 04:33:08* Test Item Value Reference Range Interpretation Comme nts GLUCOSE (test code = 2216) 126 MG/DL 70-99 H BUN (test code = 2207) 20 MG/DL 8-23 CREATININE (test code = 221) 0.92 MG/DL 0.80-1.40 eGFR (2020 CKD-EPI) (test code = 90524) 91 ML/MIN/1.73 >60 CALC BUN/CREAT (test code = 2235) 22 RATIO 6-28 SODIUM (test code = 223) 142 MEQ/L 133-146 POTASSIUM (test code = 2228) 4.4 MEQ/L 3.5-5.4 CHLORIDE (test code = 2215) 103 MEQ/L 95-107 CARBON DIOXIDE (test code = 2206) 26 MEQ/L 19-31 CALCIUM (test code = 2209) 9.2 MG/DL 8.5-10.5 PROTEIN, TOTAL (test code = 222) 7.2 G/DL 6.1-8.3 ALBUMIN (test code = 2201) 4.1 G/DL 3.5-5.2 CALC GLOBULIN (test code = 2240) 3.1 G/DL 1.9-3.7 CALC A/G RATIO (test code = 2234) 1.3 RATIO 1.0-2.6 BILIRUBIN, TOTAL (test code = 220) 0.4 MG/DL See_Comment [Automated me ssage] The system which generated this result transmitted reference range: <=1.2. The reference range was not used to interpret this result as normal/abnormal. ALKALINE PHOSPHATASE (test code = 4) 201 U/L 40-125 H AST (test code = 2218) 24 U/L 9-50 ALT (test code = 2219) 33 U/L 5-50"
[2024-02-29 13:54] LABS: SARS-CoV-2 Antigen CONTROL BLUE LINE VIS/BG OK; SARS-CoV-2 Antigen Rapid Res Negative (Negative)
--- NOTE | 2024-02-29 14:17 | ER ---
Nurse's Notes [facility] Name: Michele Hardwick Age: 73 yrs Sex: Male : 1950 Arrival Date: 02/29/2024 Time: 12:07 Bed 12 Private MD: Diagnosis: Acute pharyngitis, unspecified Presentation: 02/28 12:26 Chief complaint: Patient states: SORE THROAT STARTED YESTERDAY WORSE LAST NIGHT. db Coronavirus screen: Client denies travel out of the [place] in the last 14 days. At this time, the client does not indicate any symptoms associated with coronavirus-19. Ebola Screen: Patient negative for fever greater than or equal to 101.5 degrees Fahrenheit, and additional compatible Ebola Virus Disease symptoms Patient denies exposure to infectious person. Patient denies travel to an Ebola-affected area in the 21 days before illness onset. No symptoms or risks identified at this time. Initial Sepsis Screen: Does the patient meet any 2 criteria? No. Patient's initial sepsis screen is negative. Does the patient have a suspected source of infection? No. Patient's initial sepsis screen is negative. Risk Assessment: Do you want to hurt yourself or someone else? Patient reports no desire to harm self or others. Onset of symptoms was February 29, 2024. 12:26 Method Of Arrival: Ambulatory db 12:26 Acuity: GIBRAN 4 db Triage Assessment: 12:29 General: Appears in no apparent distress. comfortable, Behavior is calm, cooperative. db Pain: Complains of pain in THROAT. EENT: Reports SORE THROAT. Neuro: Level of Consciousness is awake, alert, obeys commands, Oriented to person, place, time, situation. Respiratory: Airway is patent Respiratory effort is even, unlabored, Respiratory pattern is regular, symmetrical. Historical: - Allergies: 12: No Known Allergies; db - PMHx: 12: None; db - Immunization history:: Adult Immunizations unknown. - Infectious Disease History:: Denies. - Social history:: Smoking status: Patient denies any tobacco usage or history of. Screenin:29 [facility] ED Fall Risk Assessment (Adult) History of falling in the last 3 months, db including since admission No falls in past 3 months (0 pts) Confusion or Disorientation No (0 pts) Intoxicated or Sedated No (0 pts) Impaired Gait No (0 pts) Mobility Assist Device Used No (0 pt) Altered Elimination No (0 pt) Score/Fall Risk Level 0 - 2 = Low Risk Oriented to surroundings, Maintained a safe environment. 14:31 Abuse screen: Denies threats or abuse. Denies injuries from another. Nutritional db screening: No deficits noted. Tuberculosis screening: No symptoms or risk factors identified. Assessment: 14:29 Reassessment: Patient appears in no apparent distress at this time. Patient and/or db family updated on plan of care and expected duration. Pain level reassessed. Patient is alert, oriented x 3, equal unlabored respirations, skin warm/dry/pink. General: Appears in no apparent distress. comfortable, Behavior is calm, cooperative. Respiratory: Airway is patent Respiratory effort is even, unlabored, Respiratory pattern is regular, symmetrical, Breath sounds are clear. 14:31 EENT: Throat. db Vital Signs: 12:26 BP 164 / 98; Pulse 73; Resp 16; Temp 98.5; Pulse Ox 96% ; Weight 127.01 kg; Height 5 db ft. 11 in. ; 14:29 BP 158 / 88; Pulse 72; Resp 16; Pulse Ox 96% on R/A; db 12:26 Body Mass Index 39.05 (127.01 kg, 180.34 cm) db ED Course: 12:10 Patient arrived in ED. al6 12:13 Ricardo Bernal PA is PHCP. cp 12:13 Santo Silverman MD is Attending Physician. cp 12:28 Triage completed. db 12:29 Arm band placed on Patient placed in waiting room. db 13:03 Sheila Lamar, WAI is Primary Nurse. iw 13:15 Influenza Screen (a \T\ B) Sent. db 13:15 SARS RAPID Sent. db 13:15 Strep Sent. db 14:29 Patient has correct armband on for positive identification. Bed in low position. Call db light in reach. Side rails up X 1. Provided Education on: DISCHARGE AND PRESCRIPTIONS. Pulse ox on. NIBP on. Warm blanket given. 14:29 No provider procedures requiring assistance completed. Patient did not have IV access db during this emergency room visit. Administered Medications: No medications were administered Medication: 14:29 VIS not applicable for this client. db Outcome: 14:17 Discharge ordered by . cp 14:29 Discharged to home ambulatory, db 14:29 Condition: stable 14:29 Discharge instructions given to patient, Instructed on discharge instructions, follow up and referral plans. Prescriptions given X 2, 14:31 Patient left the ED. db Signatures: Sheila Lamar, RN RN iw Ricardo Bernal PA PA cp Benton, Danielle, RN RN db Pau Burgos Corrections: (The following items were deleted from the chart) 12:28 12:26 Pulse 73bpm; Resp 16bpm; Pulse Ox 96%; Temp 98.5F; 127.01 kg; Height 5 ft. 11 db in.; BMI: 39.0; db
--- NOTE | 2024-02-29 14:17 | EDPHYS ---
Physician Documentation [facility] Name: Michele Hardwick Age: 73 yrs Sex: Male : 1950 Arrival Date: 02/29/2024 Time: 12:07 Bed 12 Private MD: ED Physician Santo Silverman HPI: 02/28 12:45 This 73 yrs old Male presents to ER via Ambulatory with complaints of Sore cp Throat. 12:45 The patient presents with sore throat. The patient describes throat pain as constant. cp Onset: The symptoms/episode began/occurred yesterday. Severity of symptoms: in the emergency department the symptoms are unchanged, despite home interventions. Associated signs and symptoms: Pertinent positives: dysphagia, Pertinent negatives cough, fever. Historical: - Allergies: 12:29 No Known Allergies; db - PMHx: :29 None; db - Immunization history:: Adult Immunizations unknown. - Infectious Disease History:: Denies. - Social history:: Smoking status: Patient denies any tobacco usage or history of. ROS: 12:50 Constitutional: Negative for body aches, fever, cp 12:50 Eyes: Negative for injury, pain, redness, and discharge, cp 12:50 ENT: Positive for sore throat, Negative for drainage from ear(s), ear pain, difficulty handling secretions, 12:50 Respiratory: Negative for cough, shortness of breath, wheezing, 12:50 Abdomen/GI: Negative for abdominal pain, vomiting, diarrhea, constipation, 12:50 Neuro: Negative for headache, 12:50 All other systems are negative, Exam: 12:55 Constitutional: The patient appears in no acute distress, alert, awake, non-toxic, well cp developed, well nourished, 12:55 Head/Face: Normocephalic, atraumatic. cp 12:55 Eyes: Periorbital structures: appear normal, Conjunctiva: normal, no exudate, no injection, Sclera: no appreciated abnormality, Lids and lashes: appear normal, bilaterally, 12:55 ENT: External ear(s): are unremarkable, Ear canal(s): are normal, clear, TM's: dullness, bilaterally, Nose: is normal, Mouth: Lips: moist, Oral mucosa: moist, Posterior pharynx: Airway: no evidence of obstruction, patent, erythema, that is marked, exudate, is not appreciated, 12:55 Neck: Lymph nodes: lymphadenopathy is appreciated, anterior cervical nodes, 12:55 Chest/axilla: Inspection: normal, 12:55 Cardiovascular: Rate: normal, 12:55 Respiratory: the patient does not display signs of respiratory distress, Respirations: normal, no use of accessory muscles, no retractions, labored breathing, is not present, Breath sounds: are clear throughout, no decreased breath sounds, no stridor, no wheezing, 12:55 Abdomen/GI: Exam negative for discomfort, distension, guarding, Inspection: abdomen appears normal, Vital Signs: 12:26 BP 164 / 98; Pulse 73; Resp 16; Temp 98.5; Pulse Ox 96% ; Weight 127.01 kg; Height 5 db ft. 11 in. ; 14:29 BP 158 / 88; Pulse 72; Resp 16; Pulse Ox 96% on R/A; db 12:26 Body Mass Index 39.05 (127.01 kg, 180.34 cm) db MDM: 12:27 Medical Screening Exam initiated cp 12:45 Differential diagnosis: epiglottitis, group A strep tonsillitis, influenza, rajendra's cp angina, peritonsillar abscess pharyngitis, retropharyngeal abcess. 14:16 Data reviewed: vital signs, nurses notes, lab test result(s), and as a result, I will cp discharge patient. 14:16 Counseling: I had a detailed discussion with the patient and/or guardian regarding the cp historical points, exam findings, and any diagnostic results supporting the discharge/admit diagnosis, lab results. 02/28 12:39 Order name: Strep cp 02/28 12:39 Order name: SARS RAPID; Complete Time: 14:07 cp 02/28 12:39 Order name: Influenza Screen (a \T\ B) cp 02/28 13:55 Order name: Throat Culture EDMS Administered Medications: No medications were administered Disposition: 03/01 10:13 Co-signature as Attending Physician, Santo Silverman MD I reviewed the patient's care rn provided by the Advanced Practice Provider and agree with the diagnosis and treatment plan. Disposition Summary: 02/29/24 14:17 Discharge Ordered Notes: Location: Home cp Problem: new cp Symptoms: are unchanged cp Condition: Stable cp Diagnosis - Acute pharyngitis, unspecified cp Followup: cp - With: Private Physician - When: 2 - 3 days - Reason: Worsening of condition Discharge Instructions: - Discharge Summary Sheet cp - Pharyngitis cp - Sore Throat cp Forms: - Medication Reconciliation Form cp - Antibiotic Education cp - Prescription Opioid Use cp - Patient Portal Instructions cp - Leadership Thank You Letter cp Prescriptions: - Lidocaine Viscous - take 5 milliliter ORAL route every 4-6 hours; 120 milliliter; Refills: 0, cp Product Selection Permitted - Amoxicillin 875 mg Oral Tablet - take 1 tablet ORAL route every 12 hours for 10 days; 20 tablet; Refills: 0, cp Product Selection Permitted Signatures: Dispatcher [employer] EDSanto Garcia MD MD rn Ricardo Bernal PA PA Nataly Lao, RN RN db
[2024-03-02 16:06] VITALS: BP 164/98; TEMP 98.5; O2SAT 96
== END 2024-02-29 14:31 | disposition home or self-care (01) ==
LOC: ER 12:07
DX: J02.9 Acute pharyngitis, unspecified (principal); Z11.52 Encounter for screening for COVID-19
CPT/HCPCS: 36415; 87070; 87081; 87804; 87811; 99283